=== PATIENT | male | born 1965 | race Caucasian/White ===

== ENCOUNTER 2023-07-07 16:44 | Inpatient (IN) | payer OTHER, SELFPAY ==
[2023-07-07] VITALS (14 sets, daily range): BP systolic 105–141; BP diastolic 72–92; BMI 29.9
--- NOTE | 2023-07-07 15:20 | ED.GENMED ---
History of Present Illness
General
Chief Complaint: Chest Pain
Source: patient and ambulance crew
Time Seen by Provider: 07/07/23 15:19
Travel History
Have you had any contact with someone who has COVID-19?: No
Do you have any symptoms of coronavirus? Fever > 100 degrees, chills, cough, shortness of breath, sore throat, loss of taste or smell, muscle aches, or headache?: No
History of Present Illness
History of Present Illness:
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 The patient states he began to develop chest pain. The pain seems to come and go. EMS found ST elevation noted on EKG. STEMI alert was
initiated prior to the patient's arrival. Case was discussed with Drs. Whitney and Christiano. Patient did apparently have a syncopal episode and was slightly hypotensive by EMS but responded well to fluids. Patient was given fentanyl and aspirin
prior to arrival
Past History
Past History
ED Past Medical History: Hypercholesterolemia
ED Past Surgical History: Orthopedic
Social History
Tobacco: Non-smoker
Phy Exam
Physical Exam
Physical Exam:
CONSTITUTIONAL Patient alert and oriented to person, place and time. Vital signs reviewed.
HEAD atraumatic, normocephalic.
EYES eyelids normal to inspection, Pupils equally round and reactive to light, Extraocular muscles intact, Conjunctiva normal, Sclera normal.
NECK normal range of motion, Trachea midline, no jugular venous distention.
RESPIRATORY CHEST No respiratory distress noted, Chest expansion equal, Bilateral breath sounds clear.
CARDIOVASCULAR regular rate and rhythm, Heart sounds normal.
ABDOMEN No distention.
BACK normal inspection, no obvious deformities
UPPER EXTREMITY range of motion normal, Motor strength normal, no cyanosis, no edema.
LOWER EXTREMITY range of motion normal, Motor strength normal, no cyanosis, no edema.
NEURO Speech normal, No focal motor deficits, Central coma scale 15, Memory normal, Cranial Nerves intact to screening exam.
SKIN skin warm, dry, and normal in color.
Scores
Heart Score for Chest Pain Patients
STEMI patient?: Yes
Course
Orders/Labs/Results
Orders:
Orders
07/07/23 15:07
EKG [Electrocardiogram (*1)] Urgent
Reason for Study: Chest Pain
07/07/23 15:08
EKG- Treatment ONCE
07/07/23 15:09
Complete Blood Count/With Diff Urgent
Comprehensive Metabolic Panel Urgent
PTT Urgent
Prothrombin Time Urgent
Troponin I Urgent
Vital Signs
Initial and Last Documented VS:
Initial Vital Signs
Pulse Resp BP Pulse Ox
87 19 123/83 98
07/07/23 15:15 07/07/23 15:15 07/07/23 15:15 07/07/23 15:15
Last Documented Vital Signs
Pulse Resp BP Pulse Ox
87 19 123/83 98
07/07/23 15:15 07/07/23 15:15 07/07/23 15:15 07/07/23 15:15
MDM/Problems Addressed
MDM/Problems Addressed:
Acute ST elevation
*Pulse Oximetry
Patient hypoxic: no
*EKG
Interpreted by ED Provider?: Yes
Interpretation: abnormal
Rate: normal
Rhythm: sinus
Ischemia: ST elevation (Inferolateral leads)
*Account Resolution Specialist Interpretation
Rate: normal
Interpretation: normal
Rhythm: sinus
*Critical Care Note
Total Time (30-74mins, 75-104mins- exclusive of procedures): 20 minutes
Data Reviewed
Source: patient and ambulance crew
Further Testing Considered But Not Given:
Consider chest imaging but patient taken emergently to cardiac catheterization lab
Patient Management
Discussion with other providers: Research Anthropologist (Drs. Whitney and Christiano)
Escalation/DeEscalation of care consider admission/obs:
Patient taken emergently to cardiac catheterization lab
ED Attending Note
-
Portions of this chart may have been created with voice recognition software.� Occasional wrong word or��sound alike� substitutions may have occurred due to the inherent limitations of voice recognition software.
Discharge Plan
Departure
Patient Disposition: Admit
Date of Disposition: 07/07/23
Time of Disposition: 15:20
Admit to: farm laborer
Presentation/result/management discussed w/ accepting MD/DO: DR Whitney
Discharge Problem:
ST elevation [place] (STEMI)
Interventions
Interventions:
*General Assessment Last Done: 07/07/23 15:15
Discharge Date and Time
Print Language: BULGARIAN
[2023-07-07 15:25] LABS: % Basophils 0.3 % (0-2); % Eosinophils 0.3 % (0-6); % Immature Granulocytes 0.7 % (0-0.5); % Lymphocytes 12.4 % (20.5-51.1); % Monocytes 7.3 % (1.7-9.3); Absolute Immature Granulocytes 0.1 10^3/uL (0-0.05); Absolute Lymphocytes 1.5 10^3/uL (1.2-3.4); Absolute Monocytes 0.9 10^3/uL (0.1-0.6); Absolute Neutrophils 9.8 10^3/uL (1.4-6.5); Hematocrit 38.5 % (39.0-52.0); Hemoglobin 13.5 g/dL (13.0-18.0); Mean Corp Hgb Conc. 35.1 g/dL (33.0-37.0); Mean Corpuscular Volume 85.6 fL (80.0-94.0); Mean Platelet Volume 9.8 fL (7.4-10.4); Nucleated Red Blood Cells % 0 % (-); Platelet Count 222 10^3/uL (130-400); White Blood Cell Count 12.4 10^3/uL (4.8-10.8)
[2023-07-07 15:43] LABS: ALT (SGPT) 42 U/L (0-50); AST (SGOT) 36 U/L (17-59); Albumin 4.5 g/dl (3.5-5.0); Alkaline Phosphatase 52 U/L (38-126); Blood Urea Nitrogen 15 mg/dl (9-20); Calcium 9.1 mg/dl (8.4-10.2); Carbon Dioxide 19 mmol/L (22-30); Chloride 109 mmol/L (98-107); Glucose 159 mg/dl (70-99); Potassium 4.4 mmol/L (3.5-5.1); Sodium 135 mmol/L (135-145); eGFR 46.73
[2023-07-07 15:50] LABS: ACT-LR - POC 174 Seconds (116-155)
[2023-07-07 15:52] LABS: Troponin I < 0.012 ng/ml
[2023-07-07 15:59] LABS: INR 1.07; PT 13.8 Sec (11.4-14.6)
[2023-07-07 16:00] LABS: APTT 21.6 Sec (23.4-35.0)
--- NOTE | 2023-07-07 16:14 | HPS.HSE ---
Addendum entered and electronically signed by EVA Rodríguez 07/07/23 17:08:
PCP: Eduardo Thakkar MD in [facility]
[phone]
Original Note:
Family Physician
-
Family Physician: INTERVIEWE UNKNOWN - PT NOT
Chief Complaint
-
Chest pain/syncope
History of Present Illness
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 EMS was called and EKG with ST elevation, prehospital STEMI was called. Mildly hypotensive with good response to IV fluids. Received aspirin from EMS and
once in ER got 5000u heparin as well as 180mg brilinta and brought urgently to chemistry lab instructor.
Medical History
Past Medical History
Past Medical History: Reports None
Past Surgical History: Reports None
Social History
Tobacco: Non-smoker
Alcohol: None
Personal:
Living: With Family
Employment: Employed
Family History
Family History: Unable to Obtain
Allergies / Home Medications
Allergies reflects when Allergies were last updated in [employer].
Home Medications with original date entered in [employer]
Allergy/Medication List:
ALLG: NKDA
MEDS: none
Review of Systems
-
Unable to obtain full review of systems at this time due to: Other (Pt urgently brought to chemistry lab instructor, unable to review)
Physical Exam
Vital Signs
Vital Signs
Pulse Resp BP Pulse Ox
87 19 123/83 98
07/07/23 15:15 07/07/23 15:15 07/07/23 15:15 07/07/23 15:15
Physical Exam
General: Other (PE deferred d/t urgent nature of cath)
Laboratory Results
-
07/07/23 15:09
07/07/23 15:09
Laboratory Results
PT 13.8 Sec (11.4-14.6) 07/07/23 15:09
INR 1.07 07/07/23 15:09
APTT 21.6 Sec (23.4-35.0) L 07/07/23 15:09
Total Bilirubin 1.0 mg/dl (0.2-1.3) 07/07/23 15:09
AST 36 U/L (17-59) 07/07/23 15:09
ALT 42 U/L (0-50) 07/07/23 15:09
Alkaline Phosphatase 52 U/L (38-126) 07/07/23 15:09
Troponin I < 0.012 ng/ml 07/07/23 15:09
Data Reviewed
-
Medical Tests (Nuc Med, Echo, EKG etc): Image Personally Visualized and interpreted and Report Reviewed by me
Lab Data: Labs Reviewed by me and Discussed with Physician
Impression/Plan
-
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 EMS was called and EKG with inferior ST elevation, prehospital STEMI was called. Mildly hypotensive with good response to IV fluids. Received aspirin from
EMS and once in ER got 4000u heparin as well as 180mg brilinta and brought urgently to chemistry lab instructor.
Notable labs include elevated creatinine 1.7 with GFR 46.7, and glucose 159. 1st troponin negative.
IMPRESSION:
Acute STEMI
CKD3a
Elevated glucose
PLAN:
Urgent LHC today
Admit IVU post cath
1st trop negative, will trend to peak
Brilinta 180 given in ER- likely will not be able to afford this and will need to change to plavix should he be on DAPT, continue aspirin for now
echo in AM
IVF post cath for CKD- check creat post dye load in AM
Elevated glucose- HgbA1C in AM
Will start metoprolol xl 25/daily, atorvastatin 80mg/daily
hold off on ACEI d/t creat
plan pending cath results today
followup at [facility] at discharge
--- NOTE | 2023-07-07 16:44 | CONSULT.CT ---
Consultation
-
Date/Time Consultation Requested: 07/06 1629
Date/Time Consultation Performed: 07/03 1644
Requesting Provider: Luz Garcia MD
Performing Provider: Vilma VELASQUEZ for Emiliana BOWERS
Reason for Consultation: LM Thrombus
Patient History
Physicians
Family Physician: Dr. Thakkar
Outpatient Laborer Adjustable Steel Joist: None
Inpatient Laborer Adjustable Steel Joist: Dr. Cliff Ortiz
History of Present Illness
58-year-old male with no past medical history presented to [facility] after development of acute chest pain and a syncopal episode. He was painting a fence. EMS was called, patient was found to be hypotensive and responded well to IV
fluids and EKG showed a STEMI. EMS administered aspirin, heparin, and 180 mg of Brilinta. Upon arrival to [facility] patient was urgently taken to the cardiac Administrative Support Specialist. During the left heart cath he was found to have a left main
thrombosis and MVD. Patient was then transferred to the CVICU and CT surgery was consulted for surgical evaluation.
Of note, hes c/o left wrist pain 2/2 syncopal episode.
Past Medical History
Past Medical History: Hypercholesterolemia
Past Surgical History
Past Surgical History: Other
Cornea transplant
appendectomy
Back surgery (2 plates) in 2004
Dental History
Implant x1
Family History
Mother: N/A
Father: N/A
Social History
Alcohol: None
Drug: None
Tobacco: Non-Smoker
Personal:
Living: With Spouse
Employment: Employed
Allergies
Allergy/AdvReac Type Severity Reaction Status Date / Time
No Known Allergies Allergy Unverified 07/07/23 15:14
Home Medications
�Medication �Instructions �Recorded �Confirmed �Type
No Meds [No Current Medications] 07/07/23 07/07/23 History
Review of Systems
-
History Source: Patient
General: Reports No Symptoms
HEENT: Reports No Symptoms
Respiratory: Denies SOB, BUENROSTRO or Cough
Cardiac: Reports Chest Pain
Abdomen/GI: Reports No Symptoms
: Reports No Symptoms
Musculoskeletal: Reports Joint Pain (Left wrist)
Skin: Reports No Symptoms
Neurological: Reports Syncope
Vascular: Reports No Symptoms
Physical Exam
Vital Signs
Pulse 89 07/07/23 16:30
Resp Rate 20 07/07/23 16:30
Blood pressure 127/72 07/07/23 16:30
MAP (cuff-Joanna Monitor) 89 07/07/23 16:30
SaO2 98 07/07/23 15:15
Oxygen Mode of Delivery Room air 07/07/23 15:15
Actual Weight 96 kg 07/07/23 15:08
Labs
07/07/23 15:09
07/07/23 15:09
PT 13.8 Sec (11.4-14.6) 07/07/23 15:09
APTT 21.6 Sec (23.4-35.0) L 07/07/23 15:09
Troponin I < 0.012 ng/ml 07/07/23 15:09
Exam
General: Well Developed and Well Nourished
HEENT: Normocephalic
Respiratory: Clear
Cardiac: S1/S2
GI: Soft and Non Tender
Rectal: Deferred by Provider
Skin: Warm and Other (covered in paint)
Neuro: AO x 3
Lymph: No Lymphadenopathy
Psych: Calm
Assessment / Plan
-
58-year-old male with no significant past medical history presented to [place] emergency room with complaints of chest pain and a syncopal event. He was urgently taken to the cardiac Administrative Support Specialist in which a left main thrombosis was found. CT
surgery was consulted for surgical evaluation.
#LM Thrombosis
#CAD
-Patient's case will be discussed with attending physician. Further details regarding surgical timing intervention will be determined after attending physicians full evaluation
-Routine preoperative cardiothoracic surgery orders will be initiated.
-STS risk stratification score will be calculated after preoperative testing is complete
- Start Heparin gtt
- TTE ordered
- TEG ordered for Morning. Last dose of Brilinta on 07/07/23
--- NOTE | 2023-07-07 17:06 | PTCARENOTE ---
Report given to Elba SHAHID. Pt transferred to [id number] with all personal effects , on tele monitor.
--- NOTE | 2023-07-07 17:07 | ITS.CL.CATH ---
Traffic Signal Technician - Catheterization
Cardiac Catheterization
Procedure Report:
LEFT HEART CATHETERIZATION
Date of Procedure: July 07, 2023
Procedures performed:
1: Coronary angiography
2: Left ventriculography
Primary Care Physician: Dr. Jackson West (telephone [phone]) -last seen in [place] over 3 years ago
INDICATION: The patient is a 58-year-old man with a past medical history of hyperlipidemia who was at work and developed severe chest pain. EKG in transit suggested possible inferolateral ST elevation SC. On arrival to Traffic Signal Technician he is
hemodynamically stable and reporting 3 out of 10 chest discomfort.
ACCESS: The patient was prepped and draped in usual sterile fashion. A 6 Faroese sheath was placed in the right radial artery using the Seldinger over the wire technique.
HEMODYNAMIC FINDINGS (mmHg):
LV(s/d,EDP): 130/9, 16
Ao(s/d,m): 130/80, 107
ANGIOGRAPHIC FINDINGS:
Single-plane Left Ventriculography in VERDE Projection: Focal inferoapical mild hypokinesis. Overall preserved LV systolic function with a visually estimated ejection fraction 60%. No significant mitral regurgitation.
Coronary Angiography:
Dominance: Right
Left Main: Large-caliber. Distal haziness involving the ostial LAD lesion suggestive of thrombus.
Left Anterior Descending: The left anterior descending artery is a relatively large vessel that wraps around the distal apex. There is a true ostial 80% stenosis with a filling defect suggestive of thrombus extending into the distal left main.
Despite this there is normal antegrade flow in the LAD. The LAD gives rise to 2 medium caliber diagonal branches that are patent with normal flow. The LAD itself has mild to moderate luminal irregularities with 2 sequential mid 50% stenoses. The
first diagonal branch is relatively large and appears free of disease. The second diagonal branch is a medium caliber vessel that has normal flow. The apical LAD has a very distal cut off at the inferoapical portion in the territory of the
regional wall motion abnormality consistent with embolized thrombus.
Left Circumflex: The left circumflex is a relatively large caliber nondominant system that gives rise to 3 major obtuse marginal branches. The second obtuse marginal branch is very large and courses to the lateral apex. This vessel has diffuse
moderate proximal disease with a long area of 30% stenoses. The other 2 obtuse marginal branches are widely patent with normal flow.
Right Coronary: The right coronary artery is a small to medium caliber dominant vessel that gives rise to a medium caliber posterior descending artery and posterior left ventricular branch. The right coronary artery has diffuse moderate 30 to 40%
luminal irregularities in the midportion followed by a focal 80% distal lesion involving the PDA/PLV bifurcation. The distal vessels have ELIZABETH-3 flow and appear to be a reasonable surgical targets.
Fluoroscopy Time (min): 5.1
Radiation Dose (mGy): 694
DAP (Gy.cm2): 48
Closure device: None. A TR band was applied for hemostasis at the right wrist.
Complications: None.
ASSESSMENT:
1: Significant ostial LAD disease with concern for involved left main thrombus. I highly suspect this was the origin of the embolic event to the apical LAD.
2: Obstructive right coronary artery disease with good targets in the PDA and PLV branch
3: Preserved LV systolic function with no significant mitral regurgitation
CONCLUSIONS and RECOMMENDATIONS:
1: CT surgical evaluation for CABG given the left main clot with ostial LAD. Suggest VELASQUEZ to LAD and graft to the PDA and PLV. Given the thrombotic disease in the left main could consider placing a graft on the circumflex OM 2 as well. As the
patient received ticagrelor loading dose in the emergency room along with aspirin, I will admit to the CVICU for surgical evaluation and decision regarding timing of revascularization. Will initiate anticoagulation with heparin in 2 hours.
Shira Scott M.D.
Copy to: Dr. Jackson West [address] [place] [id number]
--- NOTE | 2023-07-07 17:15 | PTCARENOTE ---
report received from press tender. pt admitted to room 2267. oriented to room and unit. vitals, height/weight obtained. admission questions completed. Pt AAOX3. pt denies chest pain. NSR on telemetry heart rate in 80s. pulses palpable. no edema. pt on
room air, sat 98%. lung sounds clear. active bowel sounds, tolerating diet. right radial TR band intact. see worklist for full nursing assessment and interventions.
[2023-07-07] MEDS: NSS 1000 IV (18:00)
[2023-07-07] MEDS: LIPITOR 80 MG PO (19:01)
--- NOTE | 2023-07-07 19:42 | PTCARENOTE ---
Patient resting in bed, denies pain, R radial band intact. Remains on RA, denies any needs at this time.
[2023-07-07] MEDS: HEPARIN 25000 UNITS/250 ML IV (20:18)
--- NOTE | 2023-07-07 20:45 | PTCARENOTE ---
Patient with RT at bedside to complete PFT.
[2023-07-07 21:44] LABS: Troponin I 0.777 ng/ml
[2023-07-08] VITALS (24 sets, daily range): BP systolic 100–131; BP diastolic 57–86; BMI 29.7
--- NOTE | 2023-07-08 01:17 | PTCARENOTE ---
Patient asleep, IV fluids discontinued. Heparin gtt infusing through L hand PIV. assessment unchanged.
[2023-07-08 02:24] LABS: APTT 40.1 Sec (23.4-35.0)
[2023-07-08 03:47] LABS: Hematocrit 36.7 % (39.0-52.0); Hemoglobin 12.4 g/dL (13.0-18.0); Mean Corp Hgb Conc. 33.8 g/dL (33.0-37.0); Mean Corpuscular Hgb 29.8 pg (27.0-31.0); Mean Corpuscular Volume 88.2 fL (80.0-94.0); Mean Platelet Volume 10.1 fL (7.4-10.4); Platelet Count 215 10^3/uL (130-400); Red Blood Cell Count 4.16 10^6/uL (4.70-6.10); Red Cell Dist. Width 13.3 % (11.5-14.5); White Blood Cell Count 13.5 10^3/uL (4.8-10.8)
[2023-07-08 04:15] LABS: ALT (SGPT) 33 U/L (0-50); AST (SGOT) 36 U/L (17-59); Alkaline Phosphatase 51 U/L (38-126); Blood Urea Nitrogen 13 mg/dl (9-20); Calcium 9.3 mg/dl (8.4-10.2); Carbon Dioxide 22 mmol/L (22-30); Chloride 108 mmol/L (98-107); Direct Bilirubin 0.3 mg/dl (0.0-0.4); Estimated Creatinine Clearance 106 ml/min; Glucose 97 mg/dl (70-99); HDL Cholesterol 69 mg/dl; LDL Cholesterol, Calculated 119 mg/dl; Magnesium 2.1 mg/dl (1.6-2.3); Potassium 4.2 mmol/L (3.5-5.1); Sodium 137 mmol/L (135-145); Total Bilirubin 1.2 mg/dl (0.2-1.3); Total Cholesterol 203 mg/dl (50-199); Total Protein 6.3 g/dl (6.3-8.2); Triglyceride 79 mg/dl (10-149); Very Low Density Lipoprotein 15 mg/dl (0-30); eGFR > 60.00
--- NOTE | 2023-07-08 04:18 | PTCARENOTE ---
Provider notified of 3rd troponin value, patient continues to rest in bed. Assessment unchanged.
--- NOTE | 2023-07-08 07:00 | PTCARENOTE ---
Bedside walking rounds report.
[2023-07-08] MEDS: LOW STRENGTH ASPIRIN 81 MG PO (08:14)
[2023-07-08] MEDS: TOPROL XL 25 MG PO (08:15)
[2023-07-08 09:13] LABS: APTT 32.1 Sec (23.4-35.0)
[2023-07-08 09:22] LABS: Glycohemoglobin (HgbA1c) 6.4 % (4.0-5.6)
--- NOTE | 2023-07-08 11:04 | W.PN.UPDATE ---
Update Note
Progress Note Update
Procedure Type:�Isolated CABG
PERIOPERATIVE OUTCOME ESTIMATE %
Operative Mortality 1.52%
Morbidity & Mortality 8.48%
Stroke 1.09%
Renal Failure 1.85%
Reoperation 2.21%
Prolonged Ventilation 4.17%
Deep Sternal Wound Infection 0.142%
Long Hospital Stay (>14 days) 3.13%
Short Hospital Stay (<6 days)* 56.6%
Clinical Summary
Planned Surgery: Isolated CABG, Urgent, First cardiovascular surgery
Demographics: 58 year old, male, 94.4kg, 178cm, BMI: 29.8 kg/m�
Lab Values: Creatinine: 1.7 mg/dL, Hematocrit: 38.5%, WBC Count: 12.4 10�/�L, Platelet Count: 979337 cells/�L
Substance Abuse: Never smoker
Risk Factors / Comorbidities: Syncope
Cardiac Status: Ejection Fraction = 65%
Coronary Artery Disease: 3 vessels diseased, Left Main Stenosis >=50%, Proximal LAD Stenosis >=70%, STEMI, NH: 1 to 7 Days
Echo hasnt been completed yet, but LV function preserved on LV gram. Will update risk scores if significant valve disease found on echo.
--- NOTE | 2023-07-08 12:05 | W.PN.CD ---
Today's Communication / Plan
-
-Catheterization yesterday revealed significant ostial LAD disease with concern for involved left main thrombus.
-CT Surgery consulted; plan for surgery after Brilinta washout.
-Continue aspirin, heparin drip, high-dose atorvastatin, and Toprol-XL 25 mg daily.
-Trend troponin until peak (currently 1.970).
-Echocardiogram ordered for today.
Impression / Plan
-
Acute STEMI:
-Catheterization yesterday revealed significant ostial LAD disease with concern for involved left main thrombus.
-CT Surgery consulted; plan for surgery after Brilinta washout.
-Continue aspirin, heparin drip, high-dose atorvastatin, and Toprol-XL 25 mg daily.
-Trend troponin until peak (currently 1.970).
-Echocardiogram ordered for today.
Hyperlipidemia:
-Continue high-dose atorvastatin; LDL is 119.
Obesity:
-Weight loss and regular exercise recommended
Physical Exam
Vital Signs/Labs
Vital Signs
Temp Pulse Resp BP Pulse Ox
97.8 F 77 20 112/69 97
07/08/23 08:00 07/08/23 08:00 07/08/23 08:00 07/08/23 08:00 07/08/23 08:00
07/07/23 07/08/23 07/09/23
06:59 06:59 06:59
Actual Weight 94 kg
07/08/23 03:02
07/08/23 03:02
PT 13.8 Sec (11.4-14.6) 07/07/23 15:09
INR 1.07 07/07/23 15:09
APTT 32.1 Sec (23.4-35.0) 07/08/23 08:43
Magnesium 2.1 mg/dl (1.6-2.3) 07/08/23 03:02
Triglycerides 79 mg/dl (10-149) 07/08/23 03:02
LDL Cholesterol, Calc 119 mg/dl 07/08/23 03:02
VLDL Cholesterol, Calc 15 mg/dl (0-30) 07/08/23 03:02
HDL Cholesterol 69 mg/dl 07/08/23 03:02
LAB Results
07/07/23 07/07/23 07/08/23
15:09 21:08 03:02
Troponin I < 0.012 0.777 H* D 1.930 H* D
07/08/23
08:43
Troponin I 1.970 H*
Physical Exam
Constitutional: No acute distress and Comfortable
EENT: Anicteric and Moist mucous membranes
Cardiovascular: Rhythm & rate is regular, Pedal edema is absent, Systolic murmur absent and S1S2 is normal
Respiratory: Respiratory effort normal and Lungs clear to auscul.
GI: Soft
Neuro/Psych: AO x 3
Other: Skin
Data Reviewed
-
Date of Service: July 08, 2023
EKG: Tracing Personally Visualized and interpreted (Telemetry: Sinus rhythm.)
Labs: Labs Reviewed by me
Critical Care Time (in minutes): 36 minutes
[2023-07-08 14:31] LABS: ACT-LR - POC > 397 Seconds (116-155)
--- NOTE | 2023-07-08 14:48 | CM ---
Met with Mr. Amezquita in [facility].. He states prior to admission he resides alone in a one story home with six steps to enter. He states he has a railing on the steps. He states prior to admission he was independent with ambulation and adls. He
states he does not have any DME in the home. He states he has a prescription plan with [facility]. He states he has a friend who can call to check on him. The discharge plan ia to return home with a home visit by the Cardiothoracic Transitional Care
Nurse when medically stable.
We reviewed the pre-op and post-op routines. We reviewed the shower instructions. He has the soap and written instructions. He already has the TAVR Educational Booklet. We also reviewed restrictions including driving and lifting restrictions.
We also discussed a home visit by the Cardiothoracic Transitional Care Nurse. He is agreeable to home visit. The plan is for TAVR on July.
--- NOTE | 2023-07-08 15:13 | CM ---
Reviewed chart. Met with Mr. Amezquita to review discharge plans. He states prior to admission he resides with his spouse in a three story home with one step to enter. He states he has a full flight of steps to get to bedroom/full bathroom. He
states he has a powder room on the first floor. He states prior to admission he was independent with ambulation and adls. He states he currently does not have any health insurance. Medical work-up in progress. The discharge plan is to return home
with his spouse when medically stable.
--- NOTE | 2023-07-08 16:00 | PTCARENOTE ---
No acute changes. NSR. Per cardiology, may transfer to IVU on heparin gtt until CABG, preliminarily scheduled for Friday.
[2023-07-08] MEDS: LIPITOR 80 MG PO (16:17)
[2023-07-08 16:45] LABS: APTT 50.2 Sec (23.4-35.0)
[2023-07-08] MEDS: HEPARIN 25000 UNITS/250 ML IV (17:01)
--- NOTE | 2023-07-08 20:00 | PTCARENOTE ---
Resumed care of pt sitting up in bed AAOx3 with family at bedside. HR in the 70's in NSR on the monitor. Lungs clear. POX 95% on RA. + bowel, round abd. Pt using urinal to void when needed. Palpable peripheral pulses present. Left AC int capped.
Left hand int infusing Heparin gtt @1600units/hr per MD order. Pt denies any complaints of pain or discomfort at this time. Call crowder in reach. Will continue to monitor.
[2023-07-08 23:07] LABS: APTT 72.7 Sec (23.4-35.0)
[2023-07-09] VITALS (10 sets, daily range): BP systolic 88–128; BP diastolic 44–77; BMI 29.3
--- NOTE | 2023-07-09 05:14 | PTCARENOTE ---
Pt slept well overnight. HR in the 50's while sleeping, SB on the monitor. Pt denies any complaints of pain or discomfort. No changes in assessment noted. Will continue to monitor.
[2023-07-09 05:19] LABS: Hematocrit 37.8 % (39.0-52.0); Hemoglobin 13.1 g/dL (13.0-18.0); Mean Corp Hgb Conc. 34.7 g/dL (33.0-37.0); Mean Corpuscular Volume 86.5 fL (80.0-94.0); Mean Platelet Volume 9.8 fL (7.4-10.4); Platelet Count 218 10^3/uL (130-400); Red Blood Cell Count 4.37 10^6/uL (4.70-6.10); Red Cell Dist. Width 13.2 % (11.5-14.5); White Blood Cell Count 6.7 10^3/uL (4.8-10.8)
[2023-07-09 05:32] LABS: APTT 100.9 Sec (23.4-35.0)
[2023-07-09] MEDS: LOW STRENGTH ASPIRIN 81 MG PO (07:58)
[2023-07-09] MEDS: TOPROL XL 25 MG PO (07:58)
[2023-07-09] MEDS: HEPARIN 25000 UNITS/250 ML IV (09:44)
--- NOTE | 2023-07-09 11:35 | W.PN.CD ---
Today's Communication / Plan
-
CABG after ticagrelor washout.
Impression / Plan
-
Impression/Plan: 58 y/o [place] man (primarily Jamaican speaking) admitted with acute STEMI, found to have left main involvement.
#Acute STEMI:
-Catheterization 07/07/2023 revealed significant ostial LAD disease with concern for involved left main thrombus. Patient chest pain free at catheterization.
-CT Surgery consulted.
-Continue aspirin, heparin drip, high-dose atorvastatin, and metoprolol succinate 25 mg daily.
-Trend troponin until peak.
-Echocardiogram shows preserved EF, no significant valve disease.
-Carotid US shows no PARMJIT.
-CABG after ticagrelor washout (today is day 2 of 5). Earliest would be 07/12/2023.
#Hyperlipidemia:
-Chronic, stable.
-Total cholesterol = 203, LDL = 119, HDL = 69, Triglycerides = 79.
-Continue high-dose atorvastatin.
#Obesity:
-Weight loss and regular exercise recommended.
-He will have an indication for GLP-1 analog.
Subjective/Interval History:
Mild hypotension overnight (88/44 @ 01:00).
No labs this morning.
DATA:
TTE, 07/08/2023:
CONCLUSIONS
Left ventricular ejection fraction is 55-60%. Normal regional wall motion.
Normal right ventricular size and function.
No significant valvular disease.
No prior study available for comparison.
Carotid Artery US, 07/08/2023:
IMPRESSION: No significant plaque or stenosis bilateral extracranial carotid arteries. Antegrade flow bilateral vertebral arteries.
CT Chest, 07/08/2023:
IMPRESSION:
Thoracic aorta normal in caliber without calcific atherosclerotic changes.
Coronary artery calcifications.
Mild elevation of the right hemidiaphragm.
Cardiac catheterization, 07/07/2023:
ASSESSMENT:
1: Significant ostial LAD disease with concern for involved left main thrombus. I highly suspect this was the origin of the embolic event to the apical LAD.
2: Obstructive right coronary artery disease with good targets in the PDA and PLV branch
3: Preserved LV systolic function with no significant mitral regurgitation
Physical Exam
Vital Signs/Labs
Vital Signs
Temp Pulse Resp BP Pulse Ox
36.6 C 69 20 121/72 96
07/09/23 11:02 07/09/23 07:58 07/09/23 11:02 07/09/23 07:58 07/09/23 11:02
07/07/23 07/08/23 07/09/23
11:59 11:59 11:59
Actual Weight 94 kg 92.7 kg
07/09/23 05:06
07/08/23 03:02
PT Cancelled 07/08/23 06:00
INR Cancelled 07/08/23 06:00
APTT 100.9 Sec (23.4-35.0) H 07/09/23 05:06
Magnesium 2.1 mg/dl (1.6-2.3) 07/08/23 03:02
Triglycerides 79 mg/dl (10-149) 07/08/23 03:02
LDL Cholesterol, Calc 119 mg/dl 07/08/23 03:02
VLDL Cholesterol, Calc 15 mg/dl (0-30) 07/08/23 03:02
HDL Cholesterol 69 mg/dl 07/08/23 03:02
LAB Results
07/07/23 07/07/23 07/08/23
15:09 21:08 03:02
Troponin I < 0.012 0.777 H* D 1.930 H* D
07/08/23
08:43
Troponin I 1.970 H*
Physical Exam
Constitutional: No acute distress and Comfortable
EENT: Anicteric and Moist mucous membranes
Cardiovascular: Rhythm & rate is regular, Pedal edema is absent, JVD pressure is normal, S1S2 is normal and Murmur/rub/gallop absent
Respiratory: Respiratory effort normal, Lungs clear to auscul., Wheeze Absent, Crackles Absent and Rhonchi Absent
GI: Soft, Distention absent, Flat, Non tender and Normal bowel sounds
Neuro/Psych: AO x 3
Other: Cath Site (Right radial access site is C/D/I.)
Data Reviewed
-
Date of Service: July 09, 2023
Medical Decision Making: Reviewed Test Results, Independent Historian Assessment and Test Interpretation
EKG: Tracing Personally Visualized and interpreted and Report Reviewed by me
Echo: Tracing Personally Visualized and interpreted and Report Reviewed by me
X-Ray/CT/US/MRI/NUC/PET: Image Personally Visualized and interpreted and Report Reviewed by me
Medical Tests (PFT, Pathology etc): Image Personally Visualized and interpreted and Report Reviewed by me
Labs: Labs Reviewed by me
[2023-07-09 11:36] LABS: APTT 80.8 Sec (23.4-35.0)
--- NOTE | 2023-07-09 11:38 | CM ---
Chart reviewed. Patient is independent of ADLS, lives with his in a 3 [address], 1 MARGARITA, 0 DME. Patient speaks French understands some Honduran, reviewed preoperative and postoperative instructions, along with showering guidelines with language
line. Gave patient the Cardiac Surgery Book. Patient is outside of the driving radius of CT Transitional RN. Patient will need to be set up with VN. Plan is for the patient to return home with VN. CM to follow
--- NOTE | 2023-07-09 16:08 | W.PN.UPDATE ---
Addendum entered and electronically signed by Flaco Gannon MD 07/10/23 14:05:
I saw and examined the patient.
The PA's note was reviewed and I agree with the note.
Comment:
CARDIAC SURGERY ATTENDING:
I had a long conversation at bedside w/ Mr. Amezquita this afternoon w/ the aid of audio/visual operator # [id number]. We reviewed his pathology, the proposed operative interventions, the associated operative risks (including, but not limited to, , stroke,
MD, arrhythmia, PNA, ZULLY/F, infection, and bleeding), the expected in-hospital postoperative course, and the expected outpatient recovery. All questions were answered to the best of my abilities. The patient was agreeable to proceed.
I will proceed w/ surgical intervention tomorrow (07/11/2023). I will plan CABG x 3-4 w/ JENNIFER to LAD, GSV to OM, GSV to PDA, and GSV to PLB.
Thank you for the opportunity to participate in the care of this kind gentleman.
Please call with any questions or concerns.
Flaco Gannon M.D.
[phone]
Original Note:
Update Note
Progress Note Update
Procedure Type:�Isolated CABG
PERIOPERATIVE OUTCOME ESTIMATE %
Operative Mortality 0.868%
Morbidity & Mortality 5.41%
Stroke 0.708%
Renal Failure 0.515%
Reoperation 2.42%
Prolonged Ventilation 2.88%
Deep Sternal Wound Infection 0.132%
Long Hospital Stay (>14 days) 1.85%
Short Hospital Stay (<6 days)* 66.3%
Clinical Summary
Planned Surgery: Isolated CABG, Urgent, First cardiovascular surgery
Demographics: 58 year old, male, 94.4kg, 178cm, BMI: 29.8 kg/m�
Lab Values: Creatinine: 0.8 mg/dL, Hematocrit: 38.5%, WBC Count: 12.4 10�/�L, Platelet Count: 228490 cells/�L
PreOp Medications: ADP Inhibitors <=5 days, ADP Inhibitors Discontinuation: 4 days
Substance Abuse: Never smoker
Risk Factors / Comorbidities: Syncope
Cardiac Status: Ejection Fraction = 55%
Coronary Artery Disease: 3 vessels diseased, Left Main Stenosis >=50%, Proximal LAD Stenosis >=70%, STEMI, MD: 1 to 7 Days
Valve Disease: Trivial/Trace MR, Trivial/Trace TR
[2023-07-09] MEDS: LIPITOR 80 MG PO (17:11)
--- NOTE | 2023-07-09 23:20 | PTCARENOTE ---
Pt received at start of shift, HR SR/SB 50s-70s. Pt OOB in chair. Heparin infusing at 1700units/hr. R radial cath site dressing CDI, positive pulse, no hematoma. Pt states no questions about upcoming procedure at this time. Pt denies any pain, SOb,
or lgihtheadedness/dizziness at this time. Informed to notify RN if any changes, call crowder within reach.
[2023-07-10] VITALS (8 sets, daily range): BP systolic 102–138; BP diastolic 66–83
[2023-07-10] MEDS: HEPARIN 25000 UNITS/250 ML IV ×2 (01:35→16:21)
[2023-07-10 05:20] LABS: APTT 108.1 Sec (23.4-35.0)
[2023-07-10 05:31] LABS: Troponin I 0.471 ng/ml
[2023-07-10 05:48] LABS: Blood Urea Nitrogen 16 mg/dl (9-20); Calcium 9.6 mg/dl (8.4-10.2); Carbon Dioxide 29 mmol/L (22-30); Chloride 103 mmol/L (98-107); Estimated Creatinine Clearance 106 ml/min; Glucose 110 mg/dl (70-99); Potassium 4.3 mmol/L (3.5-5.1); Sodium 135 mmol/L (135-145); eGFR > 60.00
[2023-07-10] MEDS: TOPROL XL 25 MG PO (07:13)
[2023-07-10] MEDS: LOW STRENGTH ASPIRIN 81 MG PO (07:13)
--- NOTE | 2023-07-10 10:42 | W.PN.CD ---
Today's Communication / Plan
-
CABG after ticagrelor washout.
Impression / Plan
-
Impression/Plan: 58 y/o [place] man (primarily Kazakh speaking) admitted with acute STEMI, found to have left main involvement.
#Acute STEMI:
-Catheterization 07/07/2023 revealed significant ostial LAD disease with concern for involved left main thrombus. Patient chest pain free at catheterization.
-CT Surgery consulted.
-Continue aspirin, heparin drip, high-dose atorvastatin, and metoprolol succinate 25 mg daily.
-Troponin peaked at 1.970.
-Echocardiogram shows preserved EF, no significant valve disease.
-Carotid US shows no PARMJIT.
-CABG after ticagrelor washout (today is day 2 of 5). Earliest would be 07/12/2023.
#Hyperlipidemia:
-Chronic, stable.
-Total cholesterol = 203, LDL = 119, HDL = 69, Triglycerides = 79.
-Continue high-dose atorvastatin.
#Obesity:
-Weight loss and regular exercise recommended.
-He will have an indication for GLP-1 analog.
Subjective/Interval History:
No acute events.
No subjective complaints.
DATA:
TTE, 07/08/2023:
CONCLUSIONS
Left ventricular ejection fraction is 55-60%. Normal regional wall motion.
Normal right ventricular size and function.
No significant valvular disease.
No prior study available for comparison.
Carotid Artery US, 07/08/2023:
IMPRESSION: No significant plaque or stenosis bilateral extracranial carotid arteries. Antegrade flow bilateral vertebral arteries.
CT Chest, 07/08/2023:
IMPRESSION:
Thoracic aorta normal in caliber without calcific atherosclerotic changes.
Coronary artery calcifications.
Mild elevation of the right hemidiaphragm.
Cardiac catheterization, 07/07/2023:
ASSESSMENT:
1: Significant ostial LAD disease with concern for involved left main thrombus. I highly suspect this was the origin of the embolic event to the apical LAD.
2: Obstructive right coronary artery disease with good targets in the PDA and PLV branch
3: Preserved LV systolic function with no significant mitral regurgitation
Physical Exam
Vital Signs/Labs
Vital Signs
Temp Pulse Resp BP Pulse Ox
36.8 C 68 18 108/70 98
07/10/23 07:00 07/10/23 07:13 07/10/23 07:00 07/10/23 07:13 07/10/23 07:00
07/08/23 07/09/23 07/10/23
11:59 11:59 11:59
Actual Weight 94 kg 92.7 kg
07/09/23 05:06
07/10/23 04:45
PT Cancelled 07/08/23 06:00
INR Cancelled 07/08/23 06:00
APTT 108.1 Sec (23.4-35.0) H 07/10/23 04:45
Magnesium 2.1 mg/dl (1.6-2.3) 07/08/23 03:02
Triglycerides 79 mg/dl (10-149) 07/08/23 03:02
LDL Cholesterol, Calc 119 mg/dl 07/08/23 03:02
VLDL Cholesterol, Calc 15 mg/dl (0-30) 07/08/23 03:02
HDL Cholesterol 69 mg/dl 07/08/23 03:02
LAB Results
07/07/23 07/07/23 07/08/23
15:09 21:08 03:02
Troponin I < 0.012 0.777 H* D 1.930 H* D
07/08/23 07/10/23
08:43 04:45
Troponin I 1.970 H* 0.471 H*
Physical Exam
Constitutional: No acute distress and Comfortable
EENT: Anicteric and Moist mucous membranes
Cardiovascular: Rhythm & rate is regular, Pedal edema is absent, JVD pressure is normal, S1S2 is normal and Murmur/rub/gallop absent
Respiratory: Respiratory effort normal, Lungs clear to auscul., Wheeze Absent, Crackles Absent and Rhonchi Absent
GI: Soft, Distention absent, Flat, Non tender and Normal bowel sounds
Neuro/Psych: AO x 3
Other: Cath Site (Right radial access site is C/D/I.)
Data Reviewed
-
Date of Service: July 10, 2023
Medical Decision Making: Reviewed Test Results, Independent Historian Assessment and Test Interpretation
EKG: Tracing Personally Visualized and interpreted and Report Reviewed by me
Echo: Tracing Personally Visualized and interpreted and Report Reviewed by me
X-Ray/CT/US/MRI/NUC/PET: Image Personally Visualized and interpreted and Report Reviewed by me
Medical Tests (PFT, Pathology etc): Image Personally Visualized and interpreted and Report Reviewed by me
Labs: Labs Reviewed by me
--- NOTE | 2023-07-10 11:05 | CM ---
Chart reviewed. Patient is independent of ADLS, lives with his in a 3 STH, 1 MARGARITA, 0 DME. Patient is going for a CABG 07/11/23. Patient lives outside the driving radius, so he will need to be set up with VN. Plan is for the patient to return
home with VN. CM to follow
[2023-07-10] MEDS: LIPITOR 80 MG PO (16:21)
[2023-07-11] VITALS (15 sets, daily range): BP systolic 81–121; BP diastolic 59–83; BMI 28.8
--- NOTE | 2023-07-11 01:22 | PTCARENOTE ---
Pt received at start of shift, HR SR/SB. Heparin infusing at 1700units/hr. R radial cath site CONSUELO - approximated. Pt's and two sons at bedside. Pt educated on plan of care, pt states no questions at this time. Pt denies any CP, SOB, or
lightheadedness/dizziness at this time. Informed to notify RN if any changes, call crowder within reach
CVOR prep #1 completed: pt clipped, CHG soap bed bath, new gown, new linens.
[2023-07-11 05:37] LABS: Hematocrit 40.6 % (39.0-52.0); Hemoglobin 13.9 g/dL (13.0-18.0); Mean Corp Hgb Conc. 34.2 g/dL (33.0-37.0); Mean Corpuscular Volume 87.7 fL (80.0-94.0); Platelet Count 215 10^3/uL (130-400); Red Blood Cell Count 4.63 10^6/uL (4.70-6.10); Red Cell Dist. Width 12.5 % (11.5-14.5)
[2023-07-11 05:48] LABS: APTT 101.7 Sec (23.4-35.0)
[2023-07-11] MEDS: MAGNESIUM OXIDE 500 MG PO (06:04)
[2023-07-11] MEDS: LOPRESSOR 25 MG PO (06:04)
[2023-07-11] MEDS: PROTONIX 40 MG PO (06:04)
[2023-07-11] MEDS: BACTROBAN 2% OINTMENT 1 APPLIC NASAL ×2 (06:04→19:27)
--- NOTE | 2023-07-11 07:18 | PTCARENOTE ---
CVOR prep #2 completed: bed bath w/ CHG soap, new gown, new linens, bed wiped down. AM OR meds administered, heparin stopped aeronautics teacher to CVOR. Pt belongings brought down to CVICU
[2023-07-11 07:26] LABS: ACT+ - POC 112 Seconds (82-134)
[2023-07-11 07:30] LABS: B.E. - POC -1.5 mmol/L; Glucose - POC 114 mg/dl (65-99); HCO3 - POC 23 mmol/L (21-29); Hematocrit - POC 39 % PCV (42-52); Hemodilution- POC No; Hemoglobin Calculated - POC 13.3; Ionized Calcium - POC 1.15 mmol/L (1.12-1.27); PCO2 - POC 39 mmHg (35-45); PO2 - POC 441 mmHg (80-100); Potassium - POC 3.9 mmol/L (3.6-5.0); Sodium - POC 138 mmol/L (135-145); pH - POC 7.39 (7.35-7.45)
[2023-07-11 07:31] LABS: Urine Albumin Negative (Neg - Trace); Urine Bilirubin Negative (Negative); Urine Character Clear (Clear); Urine Color Yellow; Urine Glucose Negative (Negative); Urine Ketone Negative (Negative); Urine Leukocyte Negative (Negative); Urine Nitrite Negative (Negative); Urine Occult Blood 2+ (Negative); Urine Specific Gravity 1.015 (<1.030); Urine Urobilinogen Negative (Neg - 1+)
[2023-07-11 09:27] LABS: ACT+ - POC 438 Seconds (82-134)
[2023-07-11 09:46] LABS: ACT+ - POC 457 Seconds (82-134)
[2023-07-11 09:47] LABS: Urine Squamous Cell 0-2 /LPF (Few)
[2023-07-11 09:48] LABS: Urine White Cell 0-2 /HPF (0-5)
[2023-07-11 10:28] LABS: ACT+ - POC 471 Seconds (82-134)
[2023-07-11 10:31] LABS: B.E. - POC 1.6 mmol/L; Glucose - POC 150 mg/dl (65-99); HCO3 - POC 26 mmol/L (21-29); Hematocrit - POC 34 % PCV (42-52); Hemodilution- POC Yes; Hemoglobin Calculated - POC 11.6; Ionized Calcium - POC 0.96 mmol/L (1.12-1.27); O2 Saturation %Calculated-POC 99.7 5 (92-96); PCO2 - POC 39 mmHg (35-45); PO2 - POC 199 mmHg (80-100); Potassium - POC 5.6 mmol/L (3.6-5.0); Sodium - POC 135 mmol/L (135-145); pH - POC 7.43 (7.35-7.45)
[2023-07-11 11:06] LABS: ACT+ - POC 421 Seconds (82-134)
[2023-07-11 11:16] LABS: B.E. - POC -0.1 mmol/L; Glucose - POC 221 mg/dl (65-99); HCO3 - POC 25 mmol/L (21-29); Hematocrit - POC 36 % PCV (42-52); Hemodilution- POC Yes; Hemoglobin Calculated - POC 12.4; Ionized Calcium - POC 1.04 mmol/L (1.12-1.27); O2 Saturation %Calculated-POC 99.9 5 (92-96); PCO2 - POC 43 mmHg (35-45); PO2 - POC 257 mmHg (80-100); Potassium - POC 5.7 mmol/L (3.6-5.0); Sodium - POC 135 mmol/L (135-145); pH - POC 7.38 (7.35-7.45)
[2023-07-11 11:45] LABS: ACT+ - POC 423 Seconds (82-134)
[2023-07-11 11:45] LABS: B.E. - POC -1.9 mmol/L; Glucose - POC 230 mg/dl (65-99); HCO3 - POC 24 mmol/L (21-29); Hematocrit - POC 35 % PCV (42-52); Hemodilution- POC Yes; Hemoglobin Calculated - POC 11.9; Ionized Calcium - POC 1.05 mmol/L (1.12-1.27); O2 Saturation %Calculated-POC 99.8 5 (92-96); PCO2 - POC 43 mmHg (35-45); PO2 - POC 251 mmHg (80-100); Potassium - POC 4.5 mmol/L (3.6-5.0); Sodium - POC 137 mmol/L (135-145); pH - POC 7.35 (7.35-7.45)
[2023-07-11 12:26] LABS: B.E. - POC -1.9 mmol/L; Glucose - POC 204 mg/dl (65-99); HCO3 - POC 24 mmol/L (21-29); Hematocrit - POC 36 % PCV (42-52); Hemodilution- POC Yes; Hemoglobin Calculated - POC 12.3; Ionized Calcium - POC 1.04 mmol/L (1.12-1.27); O2 Saturation %Calculated-POC 99.3 5 (92-96); PCO2 - POC 42 mmHg (35-45); PO2 - POC 159 mmHg (80-100); Potassium - POC 4.1 mmol/L (3.6-5.0); Sodium - POC 139 mmol/L (135-145); pH - POC 7.36 (7.35-7.45)
[2023-07-11 12:29] LABS: ACT+ - POC 486 Seconds (82-134)
[2023-07-11 12:51] LABS: B.E. - POC -1.4 mmol/L; Glucose - POC 156 mg/dl (65-99); HCO3 - POC 24 mmol/L (21-29); Hematocrit - POC 29 % PCV (42-52); Hemodilution- POC Yes; Hemoglobin Calculated - POC 9.7; Ionized Calcium - POC 0.96 mmol/L (1.12-1.27); PCO2 - POC 43 mmHg (35-45); PO2 - POC 399 mmHg (80-100); Potassium - POC 4.1 mmol/L (3.6-5.0); Sodium - POC 140 mmol/L (135-145); pH - POC 7.36 (7.35-7.45)
[2023-07-11 12:51] LABS: ACT+ - POC 494 Seconds (82-134)
[2023-07-11 13:28] LABS: ACT+ - POC 96 Seconds (82-134)
[2023-07-11 13:31] LABS: B.E. - POC -4.1 mmol/L; Glucose - POC 115 mg/dl (65-99); HCO3 - POC 21 mmol/L (21-29); Hematocrit - POC 31 % PCV (42-52); Hemodilution- POC Yes; Hemoglobin Calculated - POC 10.6; O2 Saturation %Calculated-POC 99.9 5 (92-96); PCO2 - POC 38 mmHg (35-45); PO2 - POC 349 mmHg (80-100); Potassium - POC 3.6 mmol/L (3.6-5.0); Sodium - POC 142 mmol/L (135-145); pH - POC 7.35 (7.35-7.45)
--- NOTE | 2023-07-11 13:42 | CON.INTV ---
Consultation
Consultation Request
Date/Time Consultation Requested: 07/11/2023
Date/Time Consultation Performed: 07/11/2023
Medical History
-
History of Present Illness:
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 He was found to have ST elevation myocardial infarction. Underwent cardiac catheterization emergently that demonstrated multivessel coronary Artery disease.
Echocardiogram show preserved ejection fraction with no valvular abnormalities.
He was evaluated by CT surgery and he was deemed candidate for revascularization.
Underwent coronary artery bypass on 07/11/2023 without complications.
Patient currently in the intensive care unit, intubated on mechanical ventilation.
Chest tube in place without significant drainage.
No air leak.
Records reviewed.
Past Medical History
Past Medical History: Other (See assessment and plan section)
Social History
Tobacco: Non-smoker
Alcohol: None
Drug: None
Personal:
Living: With Family
Employment: Employed
Family History
Family History: Unable to Obtain
Allergies / Home Medications
Allergies
Allergy/AdvReac Type Severity Reaction Status Date / Time
No Known Allergies Allergy Unverified 07/07/23 15:14
Home Medications
�Medication �Instructions �Recorded �Confirmed �Last Taken �Type
No Meds [No Current Medications] 07/07/23 07/07/23 Unknown History
Review of Systems
-
Unable to Obtain full review of systems at this time due to: Patient Intubation
Vitals / Labs / Diagnostic Testing
Vital Signs
Temp Pulse Resp BP Pulse Ox
98.3 F 88 20 115/71 98
07/11/23 06:15 07/11/23 06:15 07/11/23 06:15 07/11/23 06:04 07/11/23 06:15
Laboratory Results
07/11/23
05:25
APTT 101.7 H
Diagnostic Testing:
Physical Exam
-
HEENT: Normocephalic and Other (ET tube in place without secretion)
Cardiovascular: S1/S2
Respiratory: Clear and Other (Chest tube in place without air leak or excessive drainage.)
GI: Soft and Non Distended
Neurology: Other (Sedated on mechanical ventilation.)
Skin: Warm
General: Respiratory Distress (n)
Assessment
-
Status post coronary artery bypass 07/11/2023-Dr. Gannon
Acute ST elevation myocardial infarction
Catheterization 07/07/2023 revealed significant ostial LAD disease with concern for involved left main thrombus obesity
Conditions present prior admission:
None
Assessment and plan:
He is doing well postop-currently on mechanical ventilation and appears comfortable.
ABG reviewed: Adequate oxygenation on ventilation.
Continue SIMV mode with no change
Spontaneous breathing trial per protocol once sedation wears off.
Anemia noted-no evidence of acute bleeding
Follow H&H serially
Hemodynamics -currently requiring Levophed of 6 mics per minute.
Continue follow-up hemodynamics via PA catheter.
Wean off as able.
Follow urinary output.
Renal function is normal.
Chest tube with no excessive drainage-no air leak.
Chest x-ray reviewed: With no pneumothorax or fluid collections.
Remain nothing by mouth
Head of the bed elevation
Glycemic control per protocol
DVT prophylaxis when safe from the surgical perspective.
Critical care statement: A total of 31 minutes of critical care time was provided for this patient today. This includes management of unstable vital signs, evaluation of the patient at bedside, reviewing the patient's pertinent medical records
including ventilator settings, arterial blood gases, radiographs, microbiology, laboratory evaluations and discussion with primary team, critical care nursing, and respiratory therapy.
[2023-07-11] MEDS: TYLENOL PO (13:58)
[2023-07-11] MEDS: NEURONTIN PO ×2 (13:58→16:34)
[2023-07-11] MEDS: TOPROL XL PO (13:59)
[2023-07-11] MEDS: LOW STRENGTH ASPIRIN PO (13:59)
--- NOTE | 2023-07-11 14:28 | W.CVOR.SURPR ---
CVOR Surgeon Immed Pre Op
-
I have examined this patient prior to performance of the scheduled procedure.
The patient's condition is unchanged from the time of the dictated/written History and
Physical and the patient is able to undergo the scheduled procedure.
--- NOTE | 2023-07-11 14:28 | W.IMMPOSTOP ---
Addendum entered and electronically signed by Flaco Gannon MD 07/11/23 16:04:
[id number]
Original Note:
Surgical Immed Post Op Note
-
CARDIAC SURGERY OPERATIVE NOTE:
Preoperative Dx:
MARGARITA CA w/ ostial LAD w/ thrombus in LM
Multivessel CAD
Postoperative Dx:
Same
Procedures:
1) Median sternotomy
2) Takedown of JENNIFER (narrow pedicle)
3) Endoscopic harvest/prep of LLE GSV
4) CABG x 4 (JENNIFER to LAD, GSV to PDA, GSV to PLB, GSV to OM)
Surgeon:
Flaco Gannon M.D.
Assistants:
Luh Cuellar P.A.-C.; endoscopic GSV harvest/prep, high school assistant football coach throughout, closure
Tj Gunter P.A.-C.; closure of GSV harvest sites
Capri Lawson P.A.-C.; closure; [id number]
Anesthesia:
Wilbur Melendez M.D. and Mike Carter, Lor.N.A.
Perfusion:
Juwan SanchezC.P.; XC: 131min, CPB: 185min
Findings:
JENNIFER was healthy appearing vessel w/ ELD of 2.5mm; it had thin/fragile law and more branches then typically encountered; brisk blood flow
GSV was healthy appearing vessel w/ ELD 3.0-3.5mm; it too had more frequent branches than typically encountered.
Apical LAD was visible, it then took a course directly under the great cardiac vein. The vein was mobilized medially to allow for anastomosis to the distal aspect of the mid LAD. It was a healthy appearing target w/ normal law and an ELD of
3.0mm
The OM was visible on the epicardial surface, it was normal in appearance w/o calcifications, ELD 3.25mm
The R PDA was visible on the epicardial surface, it was slightly thin walled but otherwise normal in appearance w/ ELD 1.5mm (anastomosis performed over 1.0mm coronary shunt)
The R PLB was visible on the epicardial surface, it was slightly thin walled but otherwise normal in appearance w/ ELD 1.5mm (anastomosis performed over 1.0mm coronary shunt)
LVEF preop 50% w/o valvular heart disease; trace TR
LVEF postop 60% w/ unchanged trace TR
Complications:
Minor coagulopathy responsive to PLT transfusion
I performed the anastomosis to the R PDA x 2. While satisfied w/ the initial anastomosis, on closer inspection of the GSV conduit, approximate 3cm proximal to the anastomosis numerous clips had been placed secondary to the extensive branching of
this conduit. I had concerns that these clips had resulted in narrowing of the conduit. I opted to takedown my anastomosis and excise this area of concern on the GSV. Anastomosis reperformed w/o incident.
I performed the anastomosis to the LAD x 2. While initially hemostatic w/ good flow, the JENNIFER developed several bleeding sources after initial separation from CPB. Given the fragile law of this vessel, after attempting 1 unsuccessful repair
suture, I opted to re-establish cardioplegic arrest, takedown the initial anastomosis, and resect the terminal portion of the JENNIFER. Anastomosis reperformed w/o incident.
Transfusions:
1pk PLT
Implants:
CT x 4 (B/L pleural, inferior mediastinal, superior mediastinal)
Sternal 'square' plate and 4 - 14mm screws
Sternal wires x 8
Condition:
66 sinus w/ isoelectric STs, 101/64. CVP: 15.
GTTS: levophed 6, precedex 0.5
Stable/guarded to CVICU
--- NOTE | 2023-07-11 15:00 | PTCARENOTE ---
Received pt from CVOR team. Intubated and sedated, placed on the vent per anesthesia. SIMV 60% , rate 16, tv 550 psv 5 peep 5 pulse ox 100% via # 8 ETT at 22 cm rt lip. RT IJ cordis with slick intact. LT radial A line transducing. Lines
leveled, recalibrated and flushed. SR on monitor. Rub noted on exam. Chest tubes x 4 to - 20 cm suction. No crepitus or air leak noted. Reyes draining pink tinged urine. Small amount of bloody drainage noted from meatus during reyes care. Lt
SVG site well approximated with surgical glue. LT groin puncture , also glued and intact. sternal incision well approximated with surgical glue also. DP pulses palpable. No overt edema appreciated. Family updated and in to see pt.
[2023-07-11 15:02] LABS: Glucose - Point of Care 93 mg/dl (70-99)
[2023-07-11 15:07] LABS: Hematocrit 27.8 % (39.0-52.0); Platelet Count 200 10^3/uL (130-400)
[2023-07-11 15:08] LABS: B.E. -2.5 mmol/L; HCO3 22.5 mmol/L (21-28); Ionized Calcium 1.03 mMOL/L (1.15-1.33); O2 Saturation % 99.6 % (94-98); PCO2 39 mmHg (35-48); PO2 194 mmHg (83-108); Potassium 3.7 mMOL/L (3.5-5.1); Sodium 137 mMOL/L (136-145); pH 7.37 (7.35-7.45)
[2023-07-11 15:20] LABS: INR 1.36; PT 16.6 Sec (11.4-14.6)
[2023-07-11 15:21] LABS: APTT 28.2 Sec (23.4-35.0)
[2023-07-11 15:31] LABS: Blood Urea Nitrogen 14 mg/dl (9-20); Estimated Creatinine Clearance 106 ml/min; Glucose 92 mg/dl (70-99); Magnesium 2.9 mg/dl (1.6-2.3)
--- NOTE | 2023-07-11 15:37 | CM ---
pt ij OR today, cm to follow.
[2023-07-11] MEDS: KCL 50 IV ×2 (15:38→16:11)
[2023-07-11] MEDS: VERSED 0.5 MG IV ×2 (15:38→16:00)
[2023-07-11] MEDS: CALCIUM CHLORIDE 10% SYRINGE 50 MG IV (15:38)
[2023-07-11] MEDS: CALCIUM CHLORIDE 10% SYRINGE 50 ML IV (15:38)
[2023-07-11] MEDS: ANCEF 10 IV ×2 (15:40)
[2023-07-11] MEDS: NSS 500 IV (15:40)
--- NOTE | 2023-07-11 15:51 | W.PN.CD ---
Addendum entered and electronically signed by Kapil Ayoub MD 07/11/23 16:44:
Patient seen and examined in collaboration with [facility]; agree with below.
-Patient underwent CABG x 4 today; remains intubated at this time.
-Routine postoperative management as directed by CT Surgery.
-client relationship manager; will follow.
Original Note:
Today's Communication / Plan
-
Follow telemetry
Impression / Plan
-
Impression/Plan: 58 y/o [place] man (primarily Wolof speaking) admitted with acute STEMI, found to have left main involvement.
#Acute STEMI S/P CABG x 4 (JENNIFER to LAD, GSV to PDA, GSV to PLB, GSV to OM) by Dr. Gannon 07/11/2023
-Pre LVEF 50%, post 60% with RWMA
-EKG with sinus rhythm and non specific T wave abnormality
-Follow telemetry
-Post op mgmt per CTS
#Hyperlipidemia:
-Chronic, stable.
-Total cholesterol = 203, LDL = 119, HDL = 69, Triglycerides = 79.
-Continue high-dose atorvastatin.
#Overweight, BMI 28
-Weight loss and regular exercise recommended.
-He will have an indication for GLP-1 analog.
Subjective/Interval History:
No acute events.
No subjective complaints.
DATA:
TTE, 07/08/2023:
CONCLUSIONS
Left ventricular ejection fraction is 55-60%. Normal regional wall motion.
Normal right ventricular size and function.
No significant valvular disease.
No prior study available for comparison.
Carotid Artery US, 07/08/2023:
IMPRESSION: No significant plaque or stenosis bilateral extracranial carotid arteries. Antegrade flow bilateral vertebral arteries.
CT Chest, 07/08/2023:
IMPRESSION:
Thoracic aorta normal in caliber without calcific atherosclerotic changes.
Coronary artery calcifications.
Mild elevation of the right hemidiaphragm.
Cardiac catheterization, 07/07/2023:
ASSESSMENT:
1: Significant ostial LAD disease with concern for involved left main thrombus. I highly suspect this was the origin of the embolic event to the apical LAD.
2: Obstructive right coronary artery disease with good targets in the PDA and PLV branch
3: Preserved LV systolic function with no significant mitral regurgitation
Physical Exam
Vital Signs/Labs
Vital Signs
Temp Pulse Resp BP Pulse Ox
96.3 F L 71 16 115/71 100
07/11/23 15:24 07/11/23 15:24 07/11/23 15:24 07/11/23 06:04 07/11/23 15:24
07/10/23 07/11/23 07/12/23
06:59 06:59 06:59
Actual Weight 91.2 kg
07/11/23 14:57
PT 16.6 Sec (11.4-14.6) H 07/11/23 14:57
INR 1.36 07/11/23 14:57
APTT 28.2 Sec (23.4-35.0) 07/11/23 14:57
Magnesium 2.9 mg/dl (1.6-2.3) H 07/11/23 14:57
Triglycerides 79 mg/dl (10-149) 07/08/23 03:02
LDL Cholesterol, Calc 119 mg/dl 07/08/23 03:02
VLDL Cholesterol, Calc 15 mg/dl (0-30) 07/08/23 03:02
HDL Cholesterol 69 mg/dl 07/08/23 03:02
LAB Results
07/10/23
04:45
Troponin I 0.471 H*
Physical Exam
Constitutional: No acute distress
EENT: Anicteric and Moist mucous membranes
Cardiovascular: Rhythm & rate is regular, Pedal edema is absent and Rub present
Respiratory: Lungs clear to auscul.
GI: Soft, Distention absent and Flat
Neuro/Psych: Other (sedated)
Other: Skin (warm and dry)
Data Reviewed
-
Date of Service: July 11, 2023
EKG: Report Reviewed by me
Labs: Labs Reviewed by me
Old Records: Reviewed
[2023-07-11 16:04] LABS: Glucose - Point of Care 108 mg/dl (70-99)
--- NOTE | 2023-07-11 16:32 | PTCARENOTE ---
Bps remain soft while on 6 mcg/min of Levophed, urine out put dropping from previous and very concentrated. Discussed with CT CENTRIFUGAL OPERATOR order obtained for LR bolus. will administer.
[2023-07-11] MEDS: PACERONE PO (16:34)
[2023-07-11 16:57] LABS: Glucose - Point of Care 94 mg/dl (70-99)
--- NOTE | 2023-07-11 17:23 | W.PN.UPDATE ---
Update Note
Progress Note Update
58 year old male admitted 07/06 with STEMI (ostail LAD and LM thrombus). Received Brilinta 07/06.
IV fluids: 2000
U.O.:� 650
Blood:� 1 platelet
Wires:� none
Inotropes:� none
Pressors:� Levo @ 4
Sedatives:� Precedex @ 0.6
�
NEURO: sedated on Precedex, pupils +2mm B/L
RESP: #8OT @23cm> 600/60%/16/5. Lungs clear B/L. 2 mediastinal (0cc on arrival) and R/L pleural (5cc on arrival) chest tubes to -20cm suction. Sanguineous drainage
CV: RRR +S1, S2, no S3, +rub, no murmur. Dermabond to median sternotomy. RIJ w/[place] intact
ABD: round, soft, no BS
EXT: no edema, +2/4 DP pulses B/L, no femoral bruit, LLE NOEMY wrap intact; left radial A-line intact
: Garcia with clear yellow urine
�
A/P: POD #0 s/p CABG x 4 VELASQUEZ-LAD; SVG-OM; SVG-PDA; SVG-PLB
KELLY: EF�60%
- wean and extubate
# CAD/STEMI
- will require statin, ASA/Plavix and beta oc
# acute surgical blood loss anemia-expected
- immediate post op Hb 10
- trend CT output and CBC
�
�
# Prediabetes (A1C 6.4)
- insulin infusion x 24h, transition to SSI
--- NOTE | 2023-07-11 17:26 | PTCARENOTE ---
Awakes spontaneously. Following commands, moves all extremities. Fighting the vent. Respiratory called to CPAP. CT APPLICATION ARCHITECT MANAGER informed of plan. Will draw labs as per policy
[2023-07-11] MEDS: LR 500 IV (17:34)
[2023-07-11] MEDS: LIPITOR PO (17:35)
[2023-07-11] MEDS: OFIRMEV 100 IV (17:35)
[2023-07-11 18:01] LABS: Glucose - Point of Care 96 mg/dl (70-99)
[2023-07-11 18:03] LABS: B.E. -1.2 mmol/L; HCO3 24.3 mmol/L (21-28); Hematocrit 27.3 % (39.0-52.0); Hemoglobin 9.7 g/dL (13.0-18.0); Ionized Calcium 1.28 mMOL/L (1.15-1.33); O2 Saturation % 99.3 % (94-98); PCO2 43 mmHg (35-48); PO2 136 mmHg (83-108); Platelet Count 210 10^3/uL (130-400); pH 7.36 (7.35-7.45)
[2023-07-11 18:06] LABS: Potassium 6.3 mMOL/L (3.5-5.1)
--- NOTE | 2023-07-11 18:21 | RESPNOTE ---
1815 -- Extubated at this time without incident 100% 6 liter NC HR 78
--- NOTE | 2023-07-11 18:22 | PTCARENOTE ---
Extubated at 1815 to 6 L 100% pulse ox. Labs however showed k of 6.3, stat repeat potassium obtained and send. Awaiting results. PLANE CAPTAIN notified
[2023-07-11] MEDS: LEVOPHED 250 IV (18:26)
[2023-07-11] MEDS: LOW STRENGTH ASPIRIN 81 MG PO (18:33)
[2023-07-11] MEDS: ROXICODONE 5 MG PO (18:33)
[2023-07-11 18:41] LABS: Potassium 6.2 mmol/L (3.5-5.1)
--- NOTE | 2023-07-11 18:47 | PTCARENOTE ---
Repeat potassium 6.2. CT FITTING ROOM CHECKER notified. Awaiting orders. Pleural chest tubes without drainage last 2 hours, no clotting noted, FITTING ROOM CHECKER aware.
--- NOTE | 2023-07-11 19:00 | PTCARENOTE ---
Bedside walking rounds report received. Patient seen on rounds resting in bed in no acute distress on 4l nasal canula oxygen. NSR with rates in the 80's with pericarditis waves: pericardial friction rub auscultated. ALANNAH Jon aware: stat orders for
critical serum potassium of 6.2 (ca, d50, insulin cocktail will be given stat). 8mcg levo. Chest tubes x 4 (2 meds and 2 pleurals each to pleur evacs -20cm wall suction) No 'dumping'. Denies nausea. See flow record for remaining assessments. Plan
per ct surgery in addition to above: repeat 12 lead ekg. Closely monitor for ekg changes.
[2023-07-11 19:13] LABS: Glucose - Point of Care 107 mg/dl (70-99)
[2023-07-11] MEDS: CALCIUM CHLORIDE 10% SYRINGE 500 MG IV (19:14)
[2023-07-11] MEDS: NOVOLIN R 10 UNITS IV (19:15)
[2023-07-11] MEDS: DEXTROSE 50% SYRINGE 12.5 GRAMS IV ×2 (19:16→19:50)
[2023-07-11] MEDS: ANCEF 5 IV (19:22)
[2023-07-11] MEDS: SENOKOT-S 1 TABLET PO (19:23)
[2023-07-11 21:06] LABS: Glucose - Point of Care 179 mg/dl (70-99)
[2023-07-11 21:20] LABS: Ionized Calcium 1.25 mMOL/L (1.15-1.33)
[2023-07-11 21:33] LABS: Blood Urea Nitrogen 15 mg/dl (9-20); Calcium 9.2 mg/dl (8.4-10.2); Carbon Dioxide 23 mmol/L (22-30); Chloride 105 mmol/L (98-107); Estimated Creatinine Clearance 95 ml/min; Glucose 165 mg/dl (70-99); Magnesium 2.4 mg/dl (1.6-2.3); Potassium 4.9 mmol/L (3.5-5.1); Sodium 133 mmol/L (135-145); eGFR > 60.00
[2023-07-11] MEDS: ALBUMIN 5% 250 IV ×2 (21:43→23:22)
[2023-07-11] MEDS: TYLENOL 1000 MG PO (21:58)
[2023-07-11] MEDS: PACERONE 200 MG PO (21:58)
[2023-07-11] MEDS: NEURONTIN 100 MG PO (21:59)
[2023-07-11] MEDS: FLEXERIL 5 MG PO (21:59)
--- NOTE | 2023-07-11 23:04 | PTCARENOTE ---
5 beat run of NSVT noted on monitor: Do Jon aware. Continue to monitor. Will give and additional 5% 250ml of albumin to attempt to wean the levophed gtt down
[2023-07-11 23:19] LABS: Glucose - Point of Care 127 mg/dl (70-99)
[2023-07-12] VITALS (23 sets, daily range): BP systolic 86–107; BP diastolic 6–70; PULSE 88; O2SAT 97–98
--- NOTE | 2023-07-12 00:36 | PTCARENOTE ---
No acute changes. Vitals stable. Asleep on rounds.
[2023-07-12] MEDS: ROXICODONE 5 MG PO ×5 (00:47→19:00)
[2023-07-12 02:20] LABS: Glucose - Point of Care 79 mg/dl (70-99)
[2023-07-12 03:16] LABS: Glucose - Point of Care 76 mg/dl (70-99)
--- NOTE | 2023-07-12 03:30 | PTCARENOTE ---
No acute changes. Levo gtt now at 3mcg/min to maintain MAP's >65mmhg
[2023-07-12 04:20] LABS: Glucose - Point of Care 103 mg/dl (70-99)
[2023-07-12] MEDS: ANCEF 5 IV ×2 (04:21→13:00)
[2023-07-12 04:31] LABS: Hematocrit 24.5 % (39.0-52.0); Hemoglobin 8.6 g/dL (13.0-18.0); Mean Corp Hgb Conc. 35.1 g/dL (33.0-37.0); Mean Corpuscular Hgb 30.7 pg (27.0-31.0); Mean Corpuscular Volume 87.5 fL (80.0-94.0); Mean Platelet Volume 10.1 fL (7.4-10.4); Platelet Count 172 10^3/uL (130-400); Red Cell Dist. Width 12.7 % (11.5-14.5); White Blood Cell Count 12.4 10^3/uL (4.8-10.8)
[2023-07-12 04:44] LABS: Blood Urea Nitrogen 13 mg/dl (9-20); Calcium 8.7 mg/dl (8.4-10.2); Carbon Dioxide 25 mmol/L (22-30); Chloride 104 mmol/L (98-107); Estimated Creatinine Clearance 106 ml/min; Glucose 97 mg/dl (70-99); Magnesium 2.1 mg/dl (1.6-2.3); Potassium 4.6 mmol/L (3.5-5.1); Sodium 133 mmol/L (135-145); eGFR > 60.00
--- NOTE | 2023-07-12 05:14 | W.PN.CT ---
Today's Communication / Plan
-
-pod #1
-no significant issues overnight
-tx for hyperkalemia last night- resolved
-drips: Levo 2, Insulin
-CT output: 2 meds 80/130, 2 pleur 35/75 in 12/24 hrs
-h/h 8.6/24.5 today with hypotension - consider 1 pRBC
-wean off Levo, then deline
-d/c Garcia
-continue insulin
-current meds (ASA, Plavix, Lopressor, Amio, Protonix)
-encourage IS, OOB
Assessment / Plan
-
Assessment:
-Severe 2v CAD with ostial LAD thrombus extending to LM- s/p CABG x 4 (JENNIFER to LAD, GSV to PDA, GSV to PLB, GSV to OM) on 07/11/[address] Gannon, pod #1
-Intraop KELLY: LVEF preop 50% w/o valvular heart disease; trace TR. LVEF postop 60% w/ unchanged trace TR
-Inferior lateral STEMI
-USA
-Brilinta loaded (07/06)
-Syncopal episode with trauma to L hand
-Hypotensive episode
-LVEF 55-60%
-No significant valvular disease
-Hyperlipidemia
-Prediabetes (HgA1c 6.4)
-Acute postop blood loss anemia- stable
-Acute postop coagulopathy - s/p 1 unit platelets
-Acute postop hyperkalemia - tx with Ca and insulin/D50
-Acute postop atelectasis
-Acute postop hypovolemia with subsequent hypervolemia
-Suspected acute postop pericarditis, + rub
Discussed patient care with: Nursing and Care Team
Subjective
Procedure
s/p CABG x 4 (JENNIFER to LAD, GSV to PDA, GSV to PLB, GSV to OM) on 07/11/[address] Gannon
-
Date of Service: July 12, 2023
Objective Data
-
PT 16.6 Sec (11.4-14.6) H 07/11/23 14:57
INR 1.36 07/11/23 14:57
APTT 28.2 Sec (23.4-35.0) 07/11/23 14:57
Vital Signs
Vital Signs
Temp Pulse Resp BP Pulse Ox
98.6 F 81 17 91/60 100
07/11/23 23:58 07/12/23 01:30 07/12/23 01:30 07/12/23 01:00 07/12/23 01:30
CT Intake/Output/Weight
07/11/23 07/11/23 07/12/23
06:59 18:59 06:59
Intake Total 1149.9 / 2191.0 1041.1 / 2191.0
Output Total 370 / 1105 735 / 1105
Balance 779.9 / 1086.0 306.1 / 1086.0
SaO2: 100
Physical Exam
-
General: Awake and AOx3
Cardiovascular: Regular rate & rhythm, No Murmurs and Rub
Respiratory: Decreased Breath Sounds
Sternum: Stable
Incision: Clean, Dry and Intact
Extremities: Other (trace edema b/l)
Abdomen: soft, nontender, nondistended, decreased + bowel sounds
Data Reviewed
-
Lab Results: Results Reviewed
Medications: Active Meds Reviewed
Chest X-Ray: Report Reviewed and Image Reviewed
ECG: Report Reviewed and Image Reviewed
[2023-07-12 05:18] LABS: Glucose - Point of Care 118 mg/dl (70-99)
--- NOTE | 2023-07-12 05:52 | PTCARENOTE ---
No acute changes. Garcia catheter removed.
--- NOTE | 2023-07-12 06:00 | PTCARENOTE ---
Garcia catheter dc. Right IJ slik port dc as per order. Levophed gtt remains at 2mcg/min.
[2023-07-12] MEDS: FLEXERIL 5 MG PO ×2 (06:02→13:34)
[2023-07-12] MEDS: TYLENOL 1000 MG PO ×3 (06:02→22:37)
[2023-07-12 06:09] LABS: Glucose - Point of Care 108 mg/dl (70-99)
[2023-07-12 07:44] LABS: Glucose - Point of Care 113 mg/dl (70-99)
[2023-07-12] MEDS: LEVOPHED 250 IV (07:48)
[2023-07-12] MEDS: SENOKOT-S 1 TABLET PO ×2 (07:59→20:38)
[2023-07-12] MEDS: PROTONIX 40 MG PO (07:59)
[2023-07-12] MEDS: LOW STRENGTH ASPIRIN 81 MG PO (07:59)
[2023-07-12] MEDS: PACERONE 200 MG PO ×3 (07:59→22:37)
[2023-07-12] MEDS: BACTROBAN 2% OINTMENT 1 APPLIC NASAL ×2 (08:00→20:38)
[2023-07-12] MEDS: NEURONTIN 100 MG PO ×3 (08:00→22:37)
[2023-07-12] MEDS: PLAVIX 75 MG PO (08:00)
[2023-07-12] MEDS: LOPRESSOR PO (08:02)
--- NOTE | 2023-07-12 08:17 | PTCARENOTE ---
Assumed care of patient from night shift manager RN. AAO x 3 sitting up in the bed. SR on monitor. Lt radial A line transducing, Lines leveled, recalibrated and flushed. Levophed infusing see flow sheet for infusion totals. Insulin per glycemic
protocol. 1 L NC 95%, Using IS independently to 500. No cough or SOB noted. Chest tubes x 4 to - 20 cm suction. No air leak or crepitus noted. Abdomen soft and non tender. Hypoactive bowel sounds noted t/o. Trace anasarca appreciated. Pulses
palpable. surgical sites well approximated with glue. Plan for day discussed after pt assisted x 2 oob to chair.
[2023-07-12 10:07] LABS: Glucose - Point of Care 97 mg/dl (70-99)
[2023-07-12 11:56] LABS: Glucose - Point of Care 140 mg/dl (70-99)
--- NOTE | 2023-07-12 12:00 | PTCARENOTE ---
Levophed weaned off. VSS, oxygen weaned to room air. Pulse ox 94%. Pain well managed with Roxycodone. Assessment unchanged otherwise from prior.
--- NOTE | 2023-07-12 13:00 | PTCARENOTE ---
Pt has not voided since post cath removed, bladder scanned for 318 ml. Denies urge to void, no urge with pressure. Will continue to follow.
[2023-07-12] MEDS: NSS IV (13:35)
--- NOTE | 2023-07-12 13:42 | W.PN.CD ---
Today's Communication / Plan
-
-Clinically stable status-post CABG yesterday; remains in sinus rhythm.
-Continue aspirin/Plavix, metoprolol tartrate, and atorvastatin.
-Continue routine postoperative care as directed by CT surgery.
-Continue sed middle school teacher.
Impression / Plan
-
Impression/Plan: 58 y/o [place] man (primarily [place] speaking) admitted with acute STEMI, found to have left main involvement.
#Acute STEMI S/P CABG x 4 (JENNIFER to LAD, GSV to PDA, GSV to PLB, GSV to OM) by Dr. Gannon 07/11/2023
-Pre LVEF 50%, post 60% with RWMA
-EKG with sinus rhythm and non specific T wave abnormality
-Clinically stable status-post CABG yesterday; remains in sinus rhythm.
-Continue aspirin/Plavix, metoprolol tartrate, and atorvastatin.
-Continue routine postoperative care as directed by CT surgery.
-Continue sed middle school teacher.
#Hyperlipidemia:
-Total cholesterol = 203, LDL = 119, HDL = 69, Triglycerides = 79.
-Continue atorvastatin 80 mg daily.
#Overweight, BMI 28
-Weight loss and regular exercise recommended.
-He will have an indication for GLP-1 analog.
Subjective/Interval History:
No major events overnight.
DATA:
TTE, 07/08/2023:
CONCLUSIONS
Left ventricular ejection fraction is 55-60%. Normal regional wall motion.
Normal right ventricular size and function.
No significant valvular disease.
No prior study available for comparison.
Carotid Artery US, 07/08/2023:
IMPRESSION: No significant plaque or stenosis bilateral extracranial carotid arteries. Antegrade flow bilateral vertebral arteries.
CT Chest, 07/08/2023:
IMPRESSION:
Thoracic aorta normal in caliber without calcific atherosclerotic changes.
Coronary artery calcifications.
Mild elevation of the right hemidiaphragm.
Cardiac catheterization, 07/07/2023:
ASSESSMENT:
1: Significant ostial LAD disease with concern for involved left main thrombus. I highly suspect this was the origin of the embolic event to the apical LAD.
2: Obstructive right coronary artery disease with good targets in the PDA and PLV branch
3: Preserved LV systolic function with no significant mitral regurgitation
Physical Exam
Vital Signs/Labs
Vital Signs
Temp Pulse Resp BP Pulse Ox
98.7 F 92 28 94/69 94
07/12/23 11:55 07/12/23 11:55 07/12/23 11:55 07/12/23 11:00 07/12/23 11:55
07/11/23 07/12/23 07/13/23
06:59 06:59 06:59
Actual Weight 91.2 kg 94.7 kg
07/12/23 04:12
07/12/23 04:12
PT 16.6 Sec (11.4-14.6) H 07/11/23 14:57
INR 1.36 07/11/23 14:57
APTT 28.2 Sec (23.4-35.0) 07/11/23 14:57
Magnesium 2.1 mg/dl (1.6-2.3) 07/12/23 04:12
Triglycerides 79 mg/dl (10-149) 07/08/23 03:02
LDL Cholesterol, Calc 119 mg/dl 07/08/23 03:02
VLDL Cholesterol, Calc 15 mg/dl (0-30) 07/08/23 03:02
HDL Cholesterol 69 mg/dl 07/08/23 03:02
LAB Results
07/10/23
04:45
Troponin I 0.471 H*
Physical Exam
Constitutional: No acute distress and Comfortable
EENT: Anicteric
Cardiovascular: Rhythm & rate is regular, Pedal edema is absent, Systolic murmur absent, S1S2 is normal and Rub present (Mild pericardial friction rub)
Respiratory: Respiratory effort normal and Lungs clear to auscul.
GI: Soft and Non tender
Neuro/Psych: AO x 3
Other: Skin (Warm, dry, intact)
Data Reviewed
-
Date of Service: July 12, 2023
EKG: Tracing Personally Visualized and interpreted (Telemetry: Sinus rhythm)
Medical Tests (PFT, Pathology etc): Discussed with Physician (CT s=Surgery team) and Discussed with Nurse
Labs: Labs Reviewed by me
Critical Care Time (in minutes): 36
--- NOTE | 2023-07-12 14:54 | PTCARENOTE ---
Lt radial A line removed, hemostasis achieved. PO intake encouraged.
--- NOTE | 2023-07-12 15:42 | PTCARENOTE ---
Ambulated from bed into bathroom and then back to chair. No urge to void. Pt encouraged to drink his cup of water. Will recheck bladder scan at 1600. And proceed from there. VSS. assessment otherwise unchanged from prior.
--- NOTE | 2023-07-12 16:02 | W.PN.ANS.POP ---
Anesthesia Post Operative
- Anesthesia Post Op Note
Vital Signs Stable-See Nursing Note: Yes
Airway Patent: Yes
Adequate Pain Control: Yes
Change in Mental Status: No
Current Postoperative Nausea & Vomiting: No
Anesthesia Complications: No
General Anesthetic Recall: No
Unplanned Admission: No
Post Op Hydration Adequate: Yes
--- NOTE | 2023-07-12 17:05 | PTCARENOTE ---
Pt unable to void despite giving more time. Bladder scanned a second time to show 459 ml. PT Straight cathed for 500 ml concentrated teja urine w/o issue. Pt encouraged to drink some water. Will follow.
--- NOTE | 2023-07-12 17:16 | W.PN.INTV ---
Today's Communication / Plan
Recommendations
Continue postoperative care
Follow chest tube output
Increase activity as able
Sign off
Assessment
-
Status post coronary artery bypass 07/11/2023-Dr. Gannon
Acute ST elevation myocardial infarction
Catheterization 07/07/2023 revealed significant ostial LAD disease with concern for involved left main thrombus obesity
Conditions present prior admission:
None
Assessment and plan:
Doing well postoperative day 1
Incentive spirometry encouraged
Increase activity as able
Aspiration precautions
Analgesia.
Anemia noted-no evidence of acute bleeding
Follow H&H serially
Hemodynamics stable. Off vasoactive drugs
Renal function is normal
Chest tube with no excessive drainage-no air leak.
Chest x-ray reviewed: With no pneumothorax or fluid collections.
Advance diet as tolerated
Head of the bed elevation
Follow electrolytes and replete as necessary.
Glycemic control per protocol
DVT prophylaxis when safe from the surgical perspective.
Patient has been transferred to telemetry.
Sign off.
Subjective Dataa
Subjective Data
Date of Service:
Date of Service: July 12, 2023
Chief Complaint: Hand Coper Follow Up (Status post coronary artery bypass)
Subjective:
No new complaints
Stable overnight
Review of Systems
Cardiopulmonary: Dyspnea (n) and Dyspnea on Exertion (n)
GI: Abdominal Pain (n), Nausea (n) and Vomiting (n)
Neuro: Headache (n)
Objective Data
Data Reviewed
Vital Signs / I&O / Oxygen:
Vital Signs
Temp Pulse Resp BP Pulse Ox
97.8 F 101 28 95/70 95
07/12/23 16:54 07/12/23 17:00 07/12/23 16:54 07/12/23 16:00 07/12/23 16:54
Intake and Output
05/05/3107/12/23 07/13/23
06:59 06:59 06:59
Intake Total 120 / 120 2402.2 / 2402.2 922.0 / 922.0
Output Total 1650 / 1650 720 / 720
Balance 120 / 120 752.2 / 752.2 202.0 / 202.0
SaO2 [SIMV] 100
SaO2 95
Nasal Cannula flow liters per 1
minute
Physical Exam
General: Respiratory Distress (n) and Comfortable
HEENT: Normocephalic
Cardiovascular: S1-S2
Respiratory: Clear and Chest Tube (Chest tube in place without air leak)
GI: Soft and Non Distended
Neurology: Awake
Labs/Micro/Reports
Lab Data
07/12/23 04:12
07/12/23 04:12
Laboratory Results
07/11/23
17:55
pH 7.36
pCO2 43
pO2 136 H
HCO3 24.3
O2 Delivery Level
[2023-07-12] MEDS: LIPITOR 80 MG PO (17:27)
[2023-07-12 17:28] LABS: Glucose - Point of Care 133 mg/dl (70-99)
--- NOTE | 2023-07-12 19:00 | PTCARENOTE ---
Bedside walking rounds report received. Patient seen on rounds resting in bed in no acute distress on 2l nasal canula oxygen. ST with rates in the low 100's with pericarditis waves: pericardial friction rub auscultated. Chest tubes x 4 (2 meds and 2
pleurals each to pleur evacs -20cm wall suction) No 'dumping'. Denies nausea. See flow record for remaining assessments.
[2023-07-12] MEDS: LOPRESSOR 12.5 MG PO (20:38)
[2023-07-13] VITALS (13 sets, daily range): BP systolic 65–111; BP diastolic 38–86; BMI 29.7
--- NOTE | 2023-07-13 | PTCARENOTE ---
No acute changes. Vitals stable.
[2023-07-13] MEDS: FLEXERIL 5 MG PO ×2 (00:21→15:35)
--- NOTE | 2023-07-13 04:00 | PTCARENOTE ---
No acute changes. Voided 350ml clear teja urine.
[2023-07-13] MEDS: DILAUDID 0.5 MG IV (04:18)
[2023-07-13 05:00] LABS: Hematocrit 23.1 % (39.0-52.0); Hemoglobin 7.9 g/dL (13.0-18.0); Mean Corp Hgb Conc. 34.2 g/dL (33.0-37.0); Mean Corpuscular Hgb 30.2 pg (27.0-31.0); Mean Corpuscular Volume 88.2 fL (80.0-94.0); Mean Platelet Volume 10.5 fL (7.4-10.4); Platelet Count 154 10^3/uL (130-400); Red Blood Cell Count 2.62 10^6/uL (4.70-6.10); Red Cell Dist. Width 13.2 % (11.5-14.5); White Blood Cell Count 9.5 10^3/uL (4.8-10.8)
[2023-07-13 05:27] LABS: Blood Urea Nitrogen 14 mg/dl (9-20); Calcium 8.4 mg/dl (8.4-10.2); Carbon Dioxide 26 mmol/L (22-30); Chloride 100 mmol/L (98-107); Estimated Creatinine Clearance 95 ml/min; Glucose 119 mg/dl (70-99); Magnesium 2.1 mg/dl (1.6-2.3); Potassium 4.1 mmol/L (3.5-5.1); Sodium 132 mmol/L (135-145); eGFR > 60.00
--- NOTE | 2023-07-13 05:51 | W.PN.CT ---
Today's Communication / Plan
-
-pod #2
-no overnight issues
-CT output: med 55/155, 2 pleur 45/165 in 12/24 hrs
-current meds (ASA, Plavix, atorvastatin, Lopressor 12.5 mg, Amio, Protonix, gabapentin)
-encourage IS, OOB, still on 2 L NC
Assessment / Plan
-
Assessment:
-Severe 2v CAD with ostial LAD thrombus extending to LM- s/p CABG x 4 (JENNIFER to LAD, GSV to PDA, GSV to PLB, GSV to OM) on 07/11/[address] Gannon, pod #2
-Intraop KELLY: LVEF preop 50% w/o valvular heart disease; trace TR. LVEF postop 60% w/ unchanged trace TR
-Inferior lateral STEMI
-USA
-Brilinta loaded (07/06)
-Syncopal episode with trauma to L hand
-Hypotensive episode
-LVEF 55-60%
-No significant valvular disease
-Hyperlipidemia
-Prediabetes (HgA1c 6.4)
-Acute postop blood loss anemia- stable
-Acute postop coagulopathy - s/p 1 unit platelets
-Acute postop hyperkalemia - tx with Ca and insulin/D50
-Acute postop atelectasis
-Acute postop hypovolemia with subsequent hypervolemia
-Suspected acute postop pericarditis, + rub
Subjective
Procedure
s/p CABG x 4 (JENNIFER to LAD, GSV to PDA, GSV to PLB, GSV to OM) on 07/11/[address] Gannon
-
Date of Service: July 13, 2023
No overnight events. Levophed now off. Garcia/art line out.
Objective Data
-
Lab Results
05/05/24 04:37
07/13/23 04:37
PT 16.6 Sec (11.4-14.6) H 07/11/23 14:57
INR 1.36 07/11/23 14:57
APTT 28.2 Sec (23.4-35.0) 07/11/23 14:57
Vital Signs
Vital Signs
Temp Pulse Resp BP Pulse Ox
98.1 F 93 16 99/56 96
07/13/23 04:30 07/13/23 05:45 07/13/23 04:30 07/13/23 04:30 07/13/23 05:[address] Intake/Output/Weight
07/12/23 07/12/23 07/13/23
06:59 18:59 06:59
Intake Total 1252.3 / 2402.2 922.0 / 1247.0 325 / 1247.0
Output Total 1280 / 1650 720 / 1170 450 / 1170
Balance -27.7 / 752.2 202.0 / 77.0 -125 / 77.0
SaO2: 96
Physical Exam
-
General: Awake and Oriented
Cardiovascular: Regular rate & rhythm and Rub
Respiratory: Clear and Equal
Sternum: Stable
Incision: Clean, Dry and Intact
Extremities: No Edema
Data Reviewed
-
Lab Results: Results Reviewed
Medications: Active Meds Reviewed
Chest X-Ray: Report Reviewed
ECG: Report Reviewed
--- NOTE | 2023-07-13 07:30 | PTCARENOTE ---
Assumed care of patient from assembler 1st shift RN. AAO x 3. C/o pain. SR/ST on monitor. Loud rub noted on exam. 2 L NC 97%. Respirations shallow d/t pain. 750 on IS. Chest tubes x 4 to -20 cm suction. No air leaks or crepitus noted. Abdomen soft
and non tender with hypoactive bowel sounds noted. Trace anasarca noted . Pulses palpable. Surgical sites well approximated with glue. Plan for day discussed.
[2023-07-13] MEDS: LOPRESSOR 12.5 MG PO ×2 (07:43→21:34)
[2023-07-13] MEDS: SENOKOT-S 1 TABLET PO ×2 (07:43→21:34)
[2023-07-13] MEDS: TYLENOL 1000 MG PO ×2 (07:43→21:33)
[2023-07-13] MEDS: NEURONTIN 100 MG PO ×3 (07:43→21:33)
[2023-07-13] MEDS: LOW STRENGTH ASPIRIN 81 MG PO (07:43)
[2023-07-13] MEDS: PLAVIX 75 MG PO (07:43)
[2023-07-13] MEDS: PROTONIX 40 MG PO (07:43)
[2023-07-13] MEDS: PACERONE 200 MG PO ×3 (07:44→21:34)
[2023-07-13] MEDS: ROXICODONE 5 MG PO ×2 (07:44→21:34)
[2023-07-13] MEDS: BACTROBAN 2% OINTMENT 1 APPLIC NASAL ×2 (07:45→21:35)
--- NOTE | 2023-07-13 08:26 | PTCARENOTE ---
Chest tubes x 4 removed. Pt tolerated w/o issue. Blood card sent to blood bank, Awaiting products to transfuse.
--- NOTE | 2023-07-13 11:25 | PTCARENOTE ---
Ambulating at abel in hallway with family. States he feels much better without chest tubes in. VSS. Assessment unchanged otherwise from prior.
--- NOTE | 2023-07-13 13:55 | W.PN.CD ---
Today's Communication / Plan
-
-Remains clinically stable status-post CABG yesterday; in sinus rhythm.
-Continue aspirin/Plavix, metoprolol tartrate, and high-dose atorvastatin.
Impression / Plan
-
Impression/Plan: 58 y/o [place] man (primarily [place] speaking) admitted with acute STEMI, found to have left main involvement.
#Acute STEMI S/P CABG x 4 (JENNIFER to LAD, GSV to PDA, GSV to PLB, GSV to OM) by Dr. Gannon 07/11/2023
-Pre LVEF 50%, post 60% with RWMA
-EKG with sinus rhythm and non specific T wave abnormality
-Remains clinically stable status-post CABG yesterday; in sinus rhythm.
-Continue aspirin/Plavix, metoprolol tartrate, and high-dose atorvastatin.
-Continue postoperative care as directed by CT surgery.
-Continue surveillance monitor.
#Hyperlipidemia:
-Total cholesterol = 203, LDL = 119, HDL = 69, Triglycerides = 79.
-Continue atorvastatin 80 mg daily.
#Overweight, BMI 28
-Weight loss and regular exercise recommended.
-He will have an indication for GLP-1 analog.
Subjective/Interval History:
No major events overnight. No cardiac complaints this a.m.
DATA:
TTE, 07/08/2023:
CONCLUSIONS
Left ventricular ejection fraction is 55-60%. Normal regional wall motion.
Normal right ventricular size and function.
No significant valvular disease.
No prior study available for comparison.
Carotid Artery US, 07/08/2023:
IMPRESSION: No significant plaque or stenosis bilateral extracranial carotid arteries. Antegrade flow bilateral vertebral arteries.
CT Chest, 07/08/2023:
IMPRESSION:
Thoracic aorta normal in caliber without calcific atherosclerotic changes.
Coronary artery calcifications.
Mild elevation of the right hemidiaphragm.
Cardiac catheterization, 07/07/2023:
ASSESSMENT:
1: Significant ostial LAD disease with concern for involved left main thrombus. I highly suspect this was the origin of the embolic event to the apical LAD.
2: Obstructive right coronary artery disease with good targets in the PDA and PLV branch
3: Preserved LV systolic function with no significant mitral regurgitation
Physical Exam
Vital Signs/Labs
Vital Signs
Temp Pulse Resp BP Pulse Ox
99.2 F 101 26 111/72 93
07/13/23 11:22 07/13/23 11:22 07/13/23 11:22 07/13/23 11:17 07/13/23 11:22
07/12/23 07/13/23 07/14/23
06:59 06:59 06:59
Actual Weight 94.7 kg 93.9 kg
07/13/23 04:37
07/13/23 04:37
PT 16.6 Sec (11.4-14.6) H 07/11/23 14:57
INR 1.36 07/11/23 14:57
APTT 28.2 Sec (23.4-35.0) 07/11/23 14:57
Magnesium 2.1 mg/dl (1.6-2.3) 07/13/23 04:37
Triglycerides 79 mg/dl (10-149) 07/08/23 03:02
LDL Cholesterol, Calc 119 mg/dl 07/08/23 03:02
VLDL Cholesterol, Calc 15 mg/dl (0-30) 07/08/23 03:02
HDL Cholesterol 69 mg/dl 07/08/23 03:02
Physical Exam
Constitutional: No acute distress and Comfortable
EENT: Anicteric
Cardiovascular: Rhythm & rate is regular, Systolic murmur absent, Pedal edema present (Trivial) and S1S2 is normal
Respiratory: Respiratory effort normal and Rhonchi Present (Minimal bibasilar)
GI: Soft
Neuro/Psych: AO x 3
Other: Skin (warm, dry, intact)
Data Reviewed
-
Date of Service: July 13, 2023
EKG: Tracing Personally Visualized and interpreted (Sinus rhythm)
Medical Tests (PFT, Pathology etc): Discussed with Nurse, Discussed with Patient and Discussed with Family ( at bedside)
Labs: Labs Reviewed by me
Critical Care Time (in minutes): 35
[2023-07-13] MEDS: TYLENOL PO (14:07)
[2023-07-13] MEDS: NSS 500 IV (15:36)
--- NOTE | 2023-07-13 15:44 | PTCARENOTE ---
Ambulating with sons in hallway x 2 walks. Pain lessened and well managed. ST on monitor. VSS Assessment otherwise unchanged from prior.
[2023-07-13] MEDS: LIPITOR 80 MG PO (17:26)
[2023-07-14] VITALS (15 sets, daily range): BP systolic 78–152; BP diastolic 56–140; PULSE 90; O2SAT 96–97; BMI 29.6
--- NOTE | 2023-07-14 04:20 | W.PN.CT ---
Today's Communication / Plan
-
-pod #3
-no overnight issues
-AM CBC pending, s/p 1 U PRBC yesterday for Hgb 7.9 c/b dizziness/soft BP
-CTs out
-current meds (ASA, Plavix, atorvastatin, Lopressor 12.5 mg, Amio, Protonix, gabapentin)
Assessment / Plan
-
Assessment:
-Severe 2v CAD with ostial LAD thrombus extending to LM- s/p CABG x 4 (JENNIFER to LAD, GSV to PDA, GSV to PLB, GSV to OM) on 07/11/[address] Gannon, pod #3
-Intraop KELLY: LVEF preop 50% w/o valvular heart disease; trace TR. LVEF postop 60% w/ unchanged trace TR
-Inferior lateral STEMI
-USA
-Brilinta loaded (07/06)
-Syncopal episode with trauma to L hand
-Hypotensive episode
-LVEF 55-60%
-No significant valvular disease
-Hyperlipidemia
-Prediabetes (HgA1c 6.4)
-Acute postop blood loss anemia- stable
-Acute postop coagulopathy - s/p 1 unit platelets
-Acute postop hyperkalemia - tx with Ca and insulin/D50
-Acute postop atelectasis
-Acute postop hypovolemia with subsequent hypervolemia
-Suspected acute postop pericarditis, + rub
Subjective
Procedure
s/p CABG x 4 (JENNIFER to LAD, GSV to PDA, GSV to PLB, GSV to OM) on 07/11/[address] Gannon
-
Date of Service: July 14, 2023
No overnight events. CTs out yesterday. Transfused 1 U PRBC 2/2 low bp and dizziness, improved after transfusion.
Objective Data
-
PT 16.6 Sec (11.4-14.6) H 07/11/23 14:57
INR 1.36 07/11/23 14:57
APTT 28.2 Sec (23.4-35.0) 07/11/23 14:57
Vital Signs
Vital Signs
Temp Pulse Resp BP Pulse Ox
99.0 F 106 24 109/66 92
07/13/23 21:45 07/14/23 03:30 07/13/23 15:42 07/13/23 15:33 07/13/23 15:42
CT Intake/Output/Weight
07/13/23 07/13/23 07/14/23
06:59 18:59 06:59
Intake Total 325 / 1247.0 1050 / 1050
Output Total 450 / 1170 820 / 820
Balance -125 / 77.0 230 / 230
SaO2: 92
Physical Exam
-
General: Awake, Oriented and AOx3
Cardiovascular: Regular rate & rhythm, Rub and No Gallop
Respiratory: Clear and Equal
Sternum: Stable
Incision: Clean, Dry and Intact
Extremities: No Edema and No Erythema
[2023-07-14 05:09] LABS: Blood Urea Nitrogen 18 mg/dl (9-20); Calcium 8.1 mg/dl (8.4-10.2); Carbon Dioxide 26 mmol/L (22-30); Chloride 102 mmol/L (98-107); Estimated Creatinine Clearance 122 ml/min; Glucose 114 mg/dl (70-99); Magnesium 2.3 mg/dl (1.6-2.3); Potassium 4.1 mmol/L (3.5-5.1); Sodium 132 mmol/L (135-145); eGFR > 60.00
[2023-07-14 05:34] LABS: Hematocrit 26.4 % (39.0-52.0); Hemoglobin 9.2 g/dL (13.0-18.0); Mean Corp Hgb Conc. 34.8 g/dL (33.0-37.0); Mean Corpuscular Hgb 29.1 pg (27.0-31.0); Mean Corpuscular Volume 83.5 fL (80.0-94.0); Mean Platelet Volume 10.1 fL (7.4-10.4); Platelet Count 191 10^3/uL (130-400); Red Blood Cell Count 3.16 10^6/uL (4.70-6.10); Red Cell Dist. Width 16.5 % (11.5-14.5)
[2023-07-14] MEDS: TYLENOL 1000 MG PO ×3 (06:42→21:49)
--- NOTE | 2023-07-14 07:00 | PTCARENOTE ---
Bedside walking rounds report received. Patient seen on rounds resting in bed and oob by self on room air. NSR to ST with exertion. Room air. Denies pain. See flowrecord for remaining assessments
[2023-07-14] MEDS: NEURONTIN 100 MG PO ×3 (08:41→21:49)
[2023-07-14] MEDS: PACERONE 200 MG PO ×3 (08:41→21:49)
[2023-07-14] MEDS: LOPRESSOR 12.5 MG PO (08:41)
[2023-07-14] MEDS: PLAVIX 75 MG PO (08:42)
[2023-07-14] MEDS: KCL 20 MEQ PO (08:42)
[2023-07-14] MEDS: LOW STRENGTH ASPIRIN 81 MG PO (08:42)
[2023-07-14] MEDS: PROTONIX 40 MG PO (08:42)
[2023-07-14] MEDS: SENOKOT-S 1 TABLET PO ×2 (08:42→20:16)
[2023-07-14] MEDS: LASIX 40 MG IV (08:42)
[2023-07-14] MEDS: BACTROBAN 2% OINTMENT 1 APPLIC NASAL ×2 (08:43→20:17)
[2023-07-14 08:58] LABS: Glucose - Point of Care 151 mg/dl (70-99)
[2023-07-14] MEDS: NSS IV (11:49)
--- NOTE | 2023-07-14 12:00 | PTCARENOTE ---
No acute changes. Vitals stable. Ambulating ad abel
--- NOTE | 2023-07-14 12:56 | CM ---
Reviewed chart. Met with Mr. Amezquita to review discharge plans. He states he is feeling well and maybe able to go home soon. He states prior to admission he resides with his spouse in a three story home with one step to enter. He has a full
flight of steps to get to bedroom/full bathroom. He has a powder room on the fist floor. He ambulated 450 feet today. Prior to admission he was independent with ambulation and adls. He does not have any DME in the home. Medical work-up in
progress. The discharge plan is to return home with his spouse when medically stable.
[2023-07-14 13:25] LABS: Glucose - Point of Care 118 mg/dl (70-99)
--- NOTE | 2023-07-14 16:00 | PTCARENOTE ---
No acute changes. Assisted back to bed: right IJ cordis dc
--- NOTE | 2023-07-14 17:38 | W.PN.CD ---
Today's Communication / Plan
-
Incentive spirometry.
Ambulate.
Agree with diuresis.
Impression / Plan
-
Impression/Plan: 58 y/o [place] man (primarily Kyrgyz speaking) admitted with acute STEMI, found to have left main involvement.
#Acute STEMI S/P CABG x 4 (JENNIFER to LAD, GSV to PDA, GSV to PLB, GSV to OM) by Dr. Gannon 07/11/2023
-Pre LVEF 50%, post 60% with RWMA.
-EKG with sinus rhythm and non specific T wave abnormality.
-Remains clinically stable status-post CABG yesterday; in sinus rhythm.
-Continue aspirin/clopidogrel, metoprolol tartrate, and high-dose atorvastatin.
-Continue postoperative care as directed by CT surgery.
-Continue personnel monitor.
-Encourage incentive spirometry and ambulation.
#Hyperlipidemia:
-Chronic, stable.
-Total cholesterol = 203, LDL = 119, HDL = 69, Triglycerides = 79.
-Continue atorvastatin 80 mg daily.
#Overweight, BMI 28
-Weight loss and regular exercise recommended.
-He will have an indication for GLP-1 analog.
Subjective/Interval History:
Transfused one unit of PRBCs. Hbg up to 9.2 from 7.9.
Chest tubes out.
Weight stable.
Occasional hypotension, typically overnight with one episode on 07/13/2023 @ 9:45 AM.
Furosemide 40 mg IV given this morning.
CXR shows poor inspiratory effort.
DATA:
TTE, 07/08/2023:
CONCLUSIONS
Left ventricular ejection fraction is 55-60%. Normal regional wall motion.
Normal right ventricular size and function.
No significant valvular disease.
No prior study available for comparison.
Carotid Artery US, 07/08/2023:
IMPRESSION: No significant plaque or stenosis bilateral extracranial carotid arteries. Antegrade flow bilateral vertebral arteries.
CT Chest, 07/08/2023:
IMPRESSION:
Thoracic aorta normal in caliber without calcific atherosclerotic changes.
Coronary artery calcifications.
Mild elevation of the right hemidiaphragm.
Cardiac catheterization, 07/07/2023:
ASSESSMENT:
1: Significant ostial LAD disease with concern for involved left main thrombus. I highly suspect this was the origin of the embolic event to the apical LAD.
2: Obstructive right coronary artery disease with good targets in the PDA and PLV branch
3: Preserved LV systolic function with no significant mitral regurgitation
Physical Exam
Vital Signs/Labs
Vital Signs
Temp Pulse Resp BP Pulse Ox
36.6 C 92 18 116/67 95
07/14/23 16:23 07/14/23 16:23 07/14/23 16:23 07/14/23 16:23 07/14/23 16:23
07/13/23 07/14/23 07/15/23
11:59 11:59 11:59
Actual Weight 93.9 kg 93.7 kg
07/14/23 05:15
07/14/23 04:00
PT 16.6 Sec (11.4-14.6) H 07/11/23 14:57
INR 1.36 07/11/23 14:57
APTT 28.2 Sec (23.4-35.0) 07/11/23 14:57
Magnesium 2.3 mg/dl (1.6-2.3) 07/14/23 04:00
Triglycerides 79 mg/dl (10-149) 07/08/23 03:02
LDL Cholesterol, Calc 119 mg/dl 07/08/23 03:02
VLDL Cholesterol, Calc 15 mg/dl (0-30) 07/08/23 03:02
HDL Cholesterol 69 mg/dl 07/08/23 03:02
Physical Exam
Constitutional: No acute distress and Comfortable
EENT: Anicteric and Moist mucous membranes
Cardiovascular: Rhythm & rate is regular, Pedal edema is absent, JVD pressure is normal, S1S2 is normal and Murmur/rub/gallop absent
Respiratory: Respiratory effort normal and Other (Decreased at the bases.)
GI: Soft, Distention absent, Flat, Non tender and Normal bowel sounds
Neuro/Psych: AO x 3
Data Reviewed
-
Date of Service: July 14, 2023
Medical Decision Making: Reviewed Test Results, Independent Historian Assessment and Test Interpretation
EKG: Tracing Personally Visualized and interpreted and Report Reviewed by me
Echo: Tracing Personally Visualized and interpreted and Report Reviewed by me
X-Ray/CT/US/MRI/NUC/PET: Image Personally Visualized and interpreted and Report Reviewed by me
Medical Tests (PFT, Pathology etc): Image Personally Visualized and interpreted and Report Reviewed by me
Labs: Labs Reviewed by me
[2023-07-14] MEDS: LIPITOR 80 MG PO (17:52)
[2023-07-14 17:56] LABS: Glucose - Point of Care 127 mg/dl (70-99)
[2023-07-14] MEDS: LOPRESSOR 25 MG PO (20:17)
--- NOTE | 2023-07-14 20:55 | PTCARENOTE ---
Received pt for 7p-11p shift. Pt AAOx3, without complaints. NSR on lab pack chemist, VSS, afebrile. Pt denies pain at this time. Pt ambulatory in room. Medications administered as ordered. Pt states no bm since surgery, voiding without issues.
Tolerating po intake. IS up to 1000. Instructed pt to call for assistance prior to ambulation. Pt demonstrates use of call crowder system. Will continue to monitor.
[2023-07-14 21:52] LABS: Glucose - Point of Care 134 mg/dl (70-99)
--- NOTE | 2023-07-14 22:39 | PTCARENOTE ---
VSS, NSR on behavioral intervention specialist. Blood glucose 134. Chest tube dressing changed. CHG cloth done. Medications administered as ordered. Pt ambulatory in room without issues. Will continue to monitor.
--- NOTE | 2023-07-15 | PTCARENOTE ---
Assumed care of pt @2300. Walking rounds completed. Pt AAOx3. Pt walking ambulatory around room. Pt following commands appropriately. SR on the monitor. HR 70s. BP stable. Palpable pulses. No edema. Pt on room air. POX 96%. Lung sounds diminished.
IS encouraged. Pt voiding in the bathroom. Abdomen soft/nontender. Pt states no BM. CT dressing CDI. Sternal incision approximated and open to air. Right groin / knee surgical sites intact and ecchymotic. No c/o pain at this time. See worklist for
full VS and assessment. Call crowder within reach.
[2023-07-15 00:13] VITALS: BP 106/67
[2023-07-15 00:14] VITALS: BP 106/67
[2023-07-15 03:44] VITALS: BP 120/60
[2023-07-15 03:45] VITALS: BP 120/60
[2023-07-15 03:49] LABS: Hematocrit 24.9 % (39.0-52.0); Hemoglobin 8.8 g/dL (13.0-18.0); Mean Corp Hgb Conc. 35.3 g/dL (33.0-37.0); Mean Corpuscular Hgb 29.7 pg (27.0-31.0); Mean Corpuscular Volume 84.1 fL (80.0-94.0); Mean Platelet Volume 9.7 fL (7.4-10.4); Platelet Count 222 10^3/uL (130-400); Red Blood Cell Count 2.96 10^6/uL (4.70-6.10); Red Cell Dist. Width 16.6 % (11.5-14.5); White Blood Cell Count 8.8 10^3/uL (4.8-10.8)
--- NOTE | 2023-07-15 04:07 | W.PN.CT ---
Addendum entered and electronically signed by Flaco Gannon MD 07/15/23 10:41:
I saw and examined the patient.
The PA's note was reviewed and I agree with the note.
Comment:
Looks good on postoperative day #4
Okay for discharge today
Follow-up two-view chest x-ray prior to discharge
Original Note:
Today's Communication / Plan
-
-pod #4
-no issues overnight
-wt is up 5 lbs from preop - diuresed with 40 iv Lasix on 07/13 (UO unmeasured)
-weaned off O2 -pOx 96% on RA
-BB increased to 25 bid- BP ok
-current meds (ASA, Plavix, Lipitor, Lopressor, Amio, Protonix)
-follow 2v-CXR today
-need to encourage IS, ambulate
-possible d/c soon
Assessment / Plan
-
Assessment:
-Severe 2v CAD with ostial LAD thrombus extending to LM- s/p CABG x 4 (JENNIFER to LAD, GSV to PDA, GSV to PLB, GSV to OM) on 07/11/[address] Gannon, pod #4
-Intraop KELLY: LVEF preop 50% w/o valvular heart disease; trace TR. LVEF postop 60% w/ unchanged trace TR
-Inferior lateral STEMI
-USA
-Brilinta loaded (07/06)
-Syncopal episode with trauma to L hand
-Hypotensive episode
-LVEF 55-60%
-No significant valvular disease
-Hyperlipidemia
-Prediabetes (HgA1c 6.4)
-Acute postop blood loss anemia- stable
-Acute postop coagulopathy - s/p 1 unit platelets
-Acute postop hyperkalemia - tx with Ca and insulin/D50
-Acute postop atelectasis
-Acute postop hypovolemia with subsequent hypervolemia
-Suspected acute postop pericarditis, + rub
Discussed patient care with: Nursing and Care Team
Subjective
Procedure
s/p CABG x 4 (JENNIFER to LAD, GSV to PDA, GSV to PLB, GSV to OM) on 07/11/[address] Gannon
-
Date of Service: July 15, 2023
Objective Data
-
PT 16.6 Sec (11.4-14.6) H 07/11/23 14:57
INR 1.36 07/11/23 14:57
APTT 28.2 Sec (23.4-35.0) 07/11/23 14:57
Vital Signs
Vital Signs
Temp Pulse Resp BP Pulse Ox
98.2 F 81 16 106/67 96
07/15/23 00:14 07/15/23 00:14 07/15/23 00:14 07/15/23 00:14 07/15/23 00:14
CT Intake/Output/Weight
07/14/23 07/14/23 07/15/23
06:59 18:59 06:59
Intake Total 910 / 910
Balance 910 / 910
SaO2: 96
Physical Exam
-
General: Awake and AOx3
Cardiovascular: Regular rate & rhythm, No Murmurs and No Rub
Respiratory: Rales (at bases. No wheeze) and Decreased Breath Sounds
Sternum: Stable
Incision: Clean, Dry and Intact
Extremities: Edema +1
Abdomen: soft, nontender, nondistended, + bowel sounds
Data Reviewed
-
Lab Results: Results Reviewed
Medications: Active Meds Reviewed
Chest X-Ray: Report Reviewed and Image Reviewed
ECG: Report Reviewed and Image Reviewed
[2023-07-15 04:15] LABS: Blood Urea Nitrogen 22 mg/dl (9-20); Calcium 8.4 mg/dl (8.4-10.2); Carbon Dioxide 29 mmol/L (22-30); Chloride 102 mmol/L (98-107); Estimated Creatinine Clearance 106 ml/min; Glucose 107 mg/dl (70-99); Magnesium 2.2 mg/dl (1.6-2.3); Potassium 3.7 mmol/L (3.5-5.1); Sodium 134 mmol/L (135-145); eGFR > 60.00
--- NOTE | 2023-07-15 04:15 | PTCARENOTE ---
Previous assessment unchanged. Pt SR on the monitor. HR 80s. BP stable. Pt on RA. No c/o pain at this time. Labs drawn and sent. Call crowder within reach.
[2023-07-15 06:18] VITALS: BMI 29.2
[2023-07-15] MEDS: TYLENOL 1000 MG PO (06:18)
[2023-07-15] MEDS: KCL 20 MEQ PO (06:18)
[2023-07-15] MEDS: PLAVIX 75 MG PO (08:40)
[2023-07-15] MEDS: PROTONIX 40 MG PO (08:40)
[2023-07-15] MEDS: LOW STRENGTH ASPIRIN 81 MG PO (08:40)
[2023-07-15] MEDS: NEURONTIN 100 MG PO (08:41)
[2023-07-15] MEDS: BACTROBAN 2% OINTMENT 1 APPLIC NASAL (08:42)
[2023-07-15] MEDS: PACERONE 200 MG PO (08:43)
[2023-07-15] MEDS: NSS IV (08:44)
[2023-07-15] MEDS: SENOKOT-S PO (08:44)
[2023-07-15] MEDS: LOPRESSOR 25 MG PO (08:44)
--- NOTE | 2023-07-15 08:52 | W.DCSUMMARY ---
Discharge Summary
Discharge Data
Date of Admission: 07/07/23
Date of Discharge: 07/15/23
Total time spent discharging patient (in min): 55
-
Pending Results: No
Hospital Course
Primary care physician:
Dr. West
Outpatient insulation packer:
None
Inpatient consultants:
CBC, med spa manager, anesthesia
Procedures:
1. CABG x4 (JENNIFER to LAD, SVG to PDA, SVG to PLB, SVG to OM)
Primary Diagnosis:
1. STEMI with ostial LAD with thrombus in left main
Secondary Diagnoses:
1. Multivessel coronary artery disease
2. Hyperlipidemia
3. Obesity
HPI: 58 y/o [place] man (primarily Salvadorean speaking) admitted with acute STEMI, found to have left main involvement. He was subsequently taken to the [facility] on 07/[address] Gannon.
Hospital course: Patient was admitted on 07/06 after a syncopal event and was found to be an STEMI. Pre-operative work up was started and patient was taken to the [facility] on 07/10. Patient returned to the CVICU on Levophed, Precedex, and insulin.
Patient was found to be hyperkalemic and was treated with D50, insulin, and calcium. Precedex was eventually weaned off and patient was extubated. On 07/11 postoperative day #1 patient was found to have a pericardial rub. Garcia and mediastinal
chest tube were removed. Levophed and insulin were weaned off and arterial line was removed. He was started on aspirin, plavix, beta-blockers, and Lipitor. On 07/12 postop day 2 patient's remaining chest tubes were removed patient was given 1 unit
of packed red blood cells for hemoglobin of 7.9. 5 postoperative day #3 patient was diuresed with 40 mg of IV Lasix and beta-blockers were increased due to an elevated heart rate. On 07/14 postoperative day #4 2 view chest x-ray was performed
which was stable. Patient was deemed stable for discharge and prescriptions were sent to his preferred pharmacy. Due to the patient being an urgent CABG he will be on plavix for a total of one year.
Home medication changes:
see below
Discharge Plan
-
Patient Disposition: Home (Routine Discharge)
Discharge Diagnosis/Procedures: NSTEMI/CABG
Condition: Good
Diet: Low Cholesterol and Low Sodium
Activity: No strenuous activity
Driving Restrictions: Not until seen by your Dr
Bathing Restrictions: OK to Shower
Other Services: Cardiac Rehab
Specialty Instructions: Weigh Daily- Call MD for wt gain/loss 3 lbs overnight/5 lbs in 1 week
Activity Restrictions/Additional Instructions:
ACTIVITY:
-No strenuous activity: no heavy lifting, pushing, pulling anything over 15 pounds for one month
-continue to use stairs as tolerated
DRIVING RESTRICTIONS:
-No driving for one month or until approved by your surgeon
WOUND CARE:
-Shower daily. Use soap & water.
-No lotions, creams or powders on incision area.
DIET:
-continue a low fat/low cholesterol diet.
-IF you are diabetic, continue carb controlled diet.
CARDIAC REHAB:
-Please make appointment to start in 5-6 weeks with your local hospital program. (See Cardiac Rehabilitation Discharge Booklet).
SPECIALTY INSTRUCTIONS:
-Weigh yourself daily. Call your physician for any weight gain/loss of 3 lbs overnight or 5 lbs in one week.
-REPORT any clicking noise or uneven appearance of your sternum to your surgeon immediately.
-If you smoke, you are instructed to quit. The [place] smoking hotline phone number is [phone]
Referrals:
Estella Headley CRNP [Specified Professional Personl] - 08/21/23 10:40 am
Flaco Gannon MD [Active] - 08/12/23 1:30 pm
UNKNOWN - PT NOT,INTERVIEWE [Family Provider] -
Additional Discharge Medication Instructions: You will be on Plavix for one year total.
Prescriptions:
New
atorvastatin 80 mg Tablet
80 mg PO QPM Qty: 90 3RF
clopidogrel 75 mg Tablet
75 mg PO DAILY Qty: 90 2RF
acetaminophen [Tylenol Extra Strength] 500 mg Tablet
1,000 mg PO TID@0600,1400,2200 PRNQty: 0 0RF
pantoprazole 40 mg Tablet,Delayed Release (Dr/Ec)
40 mg PO DAILY Qty: 90 2RF
aspirin [Children's Aspirin] 81 mg Tablet,Chewable
81 mg PO DAILY Qty: 0 0RF
metoprolol tartrate 25 mg Tablet
25 mg PO Q12 Qty: 90 1RF
Discharge Orders:
Discharge Patient (As Directed); Ordered 07/15/23
Ordered By: Iris Esparza
Care Plan Goals
Care Plan Goals:
Problem: Readiness for enhanced knowledge related to diagnosis and treatment plan
Goal: Understand your diagnosis and treatment plan needs, including medications if applicable.
Instructions: Know your diagnosis, underlying causes and treatment plan options, including medications if applicable. Consult with your health care team to learn about your diagnosis and treatment plan, including medications if applicable.
Discharge Date and Time
Print Language: LUX[place]BOURGISH
[2023-07-15] MEDS: KCL 40 MEQ PO (10:12)
[2023-07-15] MEDS: LASIX 40 MG IV (10:13)
--- NOTE | 2023-07-15 12:31 | PTCARENOTE ---
vss. d/c iv as well as tele pack. dressings removed. patient declined shower and would like to shower at home. reviewed all d/c info and answered questions via and cousin. taken via wheelchair out for d/c.
--- NOTE | 2023-07-15 12:37 | W.PN.CD ---
Today's Communication / Plan
-
-No events on telemetry.
-Continue current medications; on aspirin/clopidogrel, metoprolol tartrate, and high-dose atorvastatin.
-Stable for discharge to home.
-Outpatient follow-up with Cardiology.
Impression / Plan
-
Impression/Plan: 58 y/o [place] man (primarily Micronesian speaking) admitted with acute STEMI, found to have left main involvement.
#Acute STEMI S/P CABG x 4 (JENNIFER to LAD, GSV to PDA, GSV to PLB, GSV to OM) by Dr. Gannon 07/11/2023
-Pre LVEF 50%, post 60% with RWMA.
-No events on telemetry.
-Continue current medications; on aspirin/clopidogrel, metoprolol tartrate, and high-dose atorvastatin.
-Stable for discharge to home.
-Outpatient follow-up with Cardiology.
#Hyperlipidemia:
-Chronic, stable.
-Total cholesterol = 203, LDL = 119, HDL = 69, Triglycerides = 79.
-Continue atorvastatin 80 mg daily.
#Overweight, BMI 28
-Weight loss and regular exercise recommended.
-He will have an indication for GLP-1 analog.
Subjective/Interval History:
No major events overnight.
DATA:
TTE, 07/08/2023:
CONCLUSIONS
Left ventricular ejection fraction is 55-60%. Normal regional wall motion.
Normal right ventricular size and function.
No significant valvular disease.
No prior study available for comparison.
Carotid Artery US, 07/08/2023:
IMPRESSION: No significant plaque or stenosis bilateral extracranial carotid arteries. Antegrade flow bilateral vertebral arteries.
CT Chest, 07/08/2023:
IMPRESSION:
Thoracic aorta normal in caliber without calcific atherosclerotic changes.
Coronary artery calcifications.
Mild elevation of the right hemidiaphragm.
Cardiac catheterization, 07/07/2023:
ASSESSMENT:
1: Significant ostial LAD disease with concern for involved left main thrombus. I highly suspect this was the origin of the embolic event to the apical LAD.
2: Obstructive right coronary artery disease with good targets in the PDA and PLV branch
3: Preserved LV systolic function with no significant mitral regurgitation
Physical Exam
Vital Signs/Labs
Vital Signs
Temp Pulse Resp BP Pulse Ox
98.1 F 87 18 108/66 95
07/15/23 08:00 07/15/23 08:44 07/15/23 08:00 07/15/23 08:44 07/15/23 08:00
07/14/23 07/15/23 07/16/23
06:59 06:59 06:59
Actual Weight 93.7 kg 92.2 kg
07/15/23 03:42
07/15/23 03:42
PT 16.6 Sec (11.4-14.6) H 07/11/23 14:57
INR 1.36 07/11/23 14:57
APTT 28.2 Sec (23.4-35.0) 07/11/23 14:57
Magnesium 2.2 mg/dl (1.6-2.3) 07/15/23 03:42
Triglycerides 79 mg/dl (10-149) 07/08/23 03:02
LDL Cholesterol, Calc 119 mg/dl 07/08/23 03:02
VLDL Cholesterol, Calc 15 mg/dl (0-30) 07/08/23 03:02
HDL Cholesterol 69 mg/dl 07/08/23 03:02
Physical Exam
Constitutional: No acute distress and Comfortable
EENT: Anicteric
Cardiovascular: Rhythm & rate is regular, Systolic murmur absent, Pedal edema present (trivial) and S1S2 is normal
Respiratory: Respiratory effort normal and Lungs clear to auscul.
GI: Soft
Neuro/Psych: AO x 3
Other: Skin (Warm, dry, intact)
Data Reviewed
-
Date of Service: July 15, 2023
EKG: Tracing Personally Visualized and interpreted (Telemetry: Sinus rhythm)
Labs: Labs Reviewed by me
[2023-07-15 13:13] VITALS: BP 114/73; PULSE 76; O2SAT 98; O2SAT 99
== END 2023-07-15 12:43 | disposition home or self-care (01) | DRG 234 ==
LOC: CVICU 16:44
PROVIDERS: Anesthesiology; Internal Medicine Interventional Cardiology; Nurse Practitioner; Physician Assistant Medical; ADMITTING PHYSICIAN Internal Medicine Cardiovascular Disease; ATTENDING PHYSICIAN Thoracic Surgery (Cardiothoracic Vascular Surgery); CONSULT PHYSICIAN Internal Medicine Critical Care Medicine; CONSULT PHYSICIAN Thoracic Surgery (Cardiothoracic Vascular Surgery); EMERGENCY PHYSICIAN Emergency Medicine
PROC: 4A023N7 Measurement of Cardiac Sampling and Pressure, Left Heart, Percutaneous Approach (ICD-10-PCS; 2023-07-07)
PROC: B2151ZZ Fluoroscopy of Left Heart using Low Osmolar Contrast (ICD-10-PCS; 2023-07-07)
PROC: B2111ZZ Fluoroscopy of Multiple Coronary Arteries using Low Osmolar Contrast (ICD-10-PCS; 2023-07-07)
PROC: 02100ZC Bypass Coronary Artery, One Artery from Thoracic Artery, Open Approach (ICD-10-PCS; 2023-07-11)
PROC: 021209W Bypass Coronary Artery, Three Arteries from Aorta with Autologous Venous Tissue, Open Approach (ICD-10-PCS; 2023-07-11)
PROC: 30233R1 Transfusion of Nonautologous Platelets into Peripheral Vein, Percutaneous Approach (ICD-10-PCS; 2023-07-11)
PROC: 06BQ4ZZ Excision of Left Saphenous Vein, Percutaneous Endoscopic Approach (ICD-10-PCS; 2023-07-11)
PROC: 5A1221Z Performance of Cardiac Output, Continuous (ICD-10-PCS; 2023-07-11)
PROC: B24BZZ4 Ultrasonography of Heart with Aorta, Transesophageal (ICD-10-PCS; 2023-07-11)
PROC: 30233N1 Transfusion of Nonautologous Red Blood Cells into Peripheral Vein, Percutaneous Approach (ICD-10-PCS; 2023-07-13)
DX: I21.19 ST elevation (STEMI) myocardial infarction involving other coronary artery of inferior wall (principal); D62 Acute posthemorrhagic anemia; D68.9 Coagulation defect, unspecified; J98.11 Atelectasis; I30.9 Acute pericarditis, unspecified; I95.9 Hypotension, unspecified; N18.31 Chronic kidney disease, stage 3a; E78.00 Pure hypercholesterolemia, unspecified; I25.10 Atherosclerotic heart disease of native coronary artery without angina pectoris; E66.9 Obesity, unspecified; E87.5 Hyperkalemia; E86.1 Hypovolemia; E87.70 Fluid overload, unspecified; Z68.29 Body mass index [BMI] 29.0-29.9, adult
CPT/HCPCS: 71045; 71046; 71250; 80048; 80053; 80061; 81003; 81015; 82248; 82330; 82565; 82805; 82947; 82962; 83036; 83735; 84132; 84302; 84484; 84520; 85014; 85018; 85025; 85027; 85049; 85347; 85610; 85730; 86850; 86900; 86901; 86920; 93005; 93306; 93312; 93320; 93325; 93458; 93880; 94002; 99285; C1713; C1769; C1894; P9016; P9045; P9073; Q9967